=== PATIENT | male | born 1940 | race Caucasian/White ===

== ENCOUNTER 2017-03-24 09:35 | Emergency (ER) | payer MEDICARE ==
[~2017-03-24] VITALS: Ht 175.3 cm; Wt 90.0 kg
[~2017-03-24 09:35] MED LIST: ATOR40TA16 PO; CO Q10CA; GLIM4TAB PO; LACT10SO PO; LISI-515 PO; METF1000 PO; MULT1CHW70; OMEG1CHW2; PIOG15TA5 PO; PIOG30TA4 PO
[2017-03-24 09:41] VITALS: BP 186/86; PULSE 84; RESP 16; TEMP 98.5; O2SAT 100
[2017-03-24 10:02] VITALS: O2SAT 97
[2017-03-24] MEDS ORDERED: SODIUM CHLORIDE 0.9% FLUSH 10 ML FLUSH IVF PRN (10:15)
[2017-03-24 10:27] LABS: AUTOMATED NEUTROPHIL # 5.2 TH/MM3 (1.8-7.7); BASOPHIL # 0.1 TH/MM3 (0-0.2); BASOPHIL % 0.8 % (0.0-2.0); EOSINOPHIL # 0.4 TH/MM3 (0-0.4); EOSINOPHIL % 4.5 % (0.0-4.0); HEMATOCRIT 36.9 % (39.0-51.0); HEMO FLAGS DIFF FINAL; LYMPH % 19.5 % (9.0-44.0); LYMPHOCYTE # 1.6 TH/MM3 (1.0-4.8); MEAN CELL VOLUME 88.6 FL (80.0-100.0); MEAN CORPUSCULAR HGB CONC 33.9 % (32.0-36.0); MONO % 12.9 % (0.0-8.0); NEUT % 62.3 % (16.0-70.0); PLATELET COUNT 262 TH/MM3 (150-450); RED BLOOD COUNT 4.17 MIL/MM3 (4.50-5.90); RED CELL DISTRIBUTION WIDTH 14.5 % (11.6-17.2); WHITE BLOOD COUNT 8.3 TH/MM3 (4.0-11.0)
[2017-03-24] MEDS ORDERED: MORPHINE SULFATE 4 MG/ML INJ IV ONE (10:30)
[2017-03-24] MEDS ORDERED: MAGNESIUM CITRATE SOLN 300 ML BTL PO ONE (10:30)
[2017-03-24] MEDS ORDERED: ONDANSETRON HCL 4 MG/2 ML VIAL IVP ONE (10:30)
[2017-03-24 10:35] LABS: APTT (PATIENT) 27.5 SEC (24.3-30.1); PROTHROMBIN TIME - PATIENT 10.6 SEC (9.8-11.6)
[2017-03-24 10:45] LABS: ANION GAP 7 MEQ/L (5-15); BICARBONATE 28.6 MEQ/L (21.0-32.0); BLOOD UREA NITROGEN 21 MG/DL (7-18); CHLORIDE 101 MEQ/L (98-107); GLOMERULAR FILTRATION RATE 43 ML/MIN (>89); POTASSIUM 4.3 MEQ/L (3.5-5.1); SODIUM (NA) 137 MEQ/L (136-145)
--- NOTE | 2017-03-24 10:51 | RADRPT ---
EXAM DATE/TIME: 03/24/2017 10:07 [facility] COMPARISON: No previous studies available for comparison. INDICATIONS : Chest pain. MEDICAL HISTORY : None. SURGICAL HISTORY : None. ENCOUNTER: Initial ACUITY: 1 day PAIN SCORE: 7/10 LOCATION: Left upper chest FINDINGS: A single view of the chest demonstrates the lungs to be symmetrically aerated without evidence of mas s, infiltrate or effusion. The cardiomediastinal contours are unremarkable. Osseous structures are intact. CONCLUSION: 1. Minimal basal scarring. No effusion or pneumothorax. No consolidation. Tony Woody MD on March 24, 2017 at 10:48 Board Certified Radiologist. This report was verified electronically.
[2017-03-24 10:54] LABS: CREATINE KINASE 84 U/L (39-308)
--- NOTE | 2017-03-24 11:25 | RADRPT ---
EXAM DATE/TIME: 03/24/2017 10:36 [facility] COMPARISON: CT BRAIN W/O CONTRAST, September 29, 2015, 20:44. INDICATIONS : Upper chest and posterior neck pain. RADIATION DOSE: 33.91 CTDIvol (mGy) MEDICAL HISTORY : Hypertension. Diabetes mellitus type 2. SURGICAL HISTORY : None. ENCOUNTER: Initial ACUITY: 1 day PAIN SCALE: 6/10 LOCATION: Left posterior neck TECHNIQUE: Volumetric scanning of the cervical spine was performed. Multiplanar reconstructions in the sagittal, coronal and oblique axial planes were performed. Using automated exposure control and adjustment o f the mA and/or kV according to patient size, radiation dose was kept as low as reasonably achievable to obtain optimal diagnostic quality images. DICOM format image data is available electronically f or review and comparison. FINDINGS: Thin section axial imaging of the cervical spine was performed. Sagittal and coronal imaging demonstrate adequate alignment of the vertebral bodies. The examination does demonstrate degenerated discs throughout the mid and lower aspect of the cervical spine. There a re large anterior endplate osteophytes evident at C5-6 and C6-7. C1/2: No acute bony abnormality identified. C2/3: There is a degenerated disc with a broad-based disc bulge. There is advanced facet arthritis on the l eft. The thecal space and foramina appear adequate. C3/4: There is a severely degenerated disc with broad based disc bulge and osteophytic ridging. There is mo derate facet arthritis bilaterally. There is mild bony foraminal narrowing on the left. There is mode rate bony foraminal narrowing on the right. The residual thecal space appears narrowed but adequate. C4/5: There is severe facet arthritis on the left. There is a central disc protrusion. The thecal space pilar ears narrowed but adequate. The foraminal on the right is adequate. There is mild bony foraminal narr owing on the left. C5/6: There is a degenerated disc and a broad-based disc bulge. This effaces the ventral thecal sac. There is moderate facet arthritis bilaterally. The residual thecal space and foramina appear adequate. C6/7: There is a degenerated disc with osteophytic ridging. There is right paracentral disc bulge and osteo phytic spur. The thecal space appears adequate. The foramina appear adequate. C7/T1: There are degenerative changes in the facets bilaterally. No significant neural foraminal stenosis or spinal stenosis identified. CONCLUSION: 1. Degenerative changes throughout the cervical spine as above. No acute fracture. Vishnu Holguin MD on March 24, 2017 at 11:18 Board Certified Radiologist. This report was verified electronically.
--- NOTE | 2017-03-24 11:57 | PD ---
HPI Chief Complaint: Chest Pain Time Seen by Provider: 09:44 Travel History International Travel<30 days: No Contact w/Intl Traveler<30days: No Traveled to known affect area: No History of Present Illness HPI Mr. Malave is a 76-year-old male history coronary artery disease, diabetes mellitus, renal insufficiency, who presents today with complaints of constipation. Patient also reports pain from his neck down across his chest. He reports that sharp and stabbing. He says it hurts when he moves his neck side to side. He denies any previous injury to his neck. He did state that he was doing heavy lifting yesterday carrying a toilet. PFSH Past Medical History Anxiety: Yes Cancer: No Cardiovascular Problems: No Diabetes: Yes Diminished Hearing: No Endocrine: Yes Gastrointestinal Disorders: Yes (GERD) Genitourinary: No Hepatitis: No Hiatal Hernia: No Hypertension: Yes Immune Disorder: No Implanted Vascular Access Dvce: Yes Musculoskeletal: Yes (ARTHRITIS ) Neurologic: No Psychiatric: No Reproductive: No Respiratory: Yes ( SLEEP APNEA/ CPAP) Thyroid Disease: No Past Surgical History AICD: No Body Medical Devices: SCREW RIGHT LARGE TOE Joint Replacement: Yes (NICKI. KNEES) Pacemaker: No Other Surgery: Yes Social History Alcohol Use: No Tobacco Use: No Substance Use: No Allergies-Medications (Allergen,Severity, Reaction): Coded Allergies: No Known Allergies (Unverified , 03/21/17) Reported Meds & Prescriptions Reported Meds & Active Scripts Active Flexeril (Cyclobenzaprine HCl) 5 Mg Tab 5 Mg PO TID Lactulose Liq (Lactulose) 10 Gm/15 Ml Soln 15 Ml PO BID PRN dISCONTINUE IF HAVING DIARRHEA Pioglitazone (Pioglitazone HCl) 15 Mg Tab 15 Mg PO DAILY Atorvastatin (Atorvastatin Calcium) 40 Mg Tab 40 Mg PO HS Lisinopril 20 Mg Tab 20 Mg PO DAILY Glimepiride 4 Mg Tab 4 Mg PO DAILY Take with breakfast or first main meal Metformin (Metformin HCl) 1,000 Mg Tab 1,000 Mg PO BIDPC With meals Pioglitazone (Pioglitazone HCl) 30 Mg Tab 30 Mg PO DAILY Reported Multivitamin Adult (Multiple Vitamins W/ Minerals) 1 Chw Chw [place] Dha ([place] 3 Fatty Acids-[place] 6 FA) Unknown Strength Chw Unknown Dose Co Q 10 (Coenzyme Q10 (Ubidecarenone)) Unknown Strength Cap Unknown Dose Review of Systems Except as stated in HPI: all other systems reviewed are Neg General / Constitutional: No: Fever, Chills HENT: Positive: Neck Pain, No: Headaches, Vertigo Cardiovascular: Positive: Chest Pain or Discomfort (radiate from the neck), No : Irregular Rhythm Respiratory: No: Cough, Shortness of Breath Gastrointestinal: Positive: Abdominal Pain, Constipation, No: Nausea, Vomiting Genitourinary: No: Frequency, Dysuria Musculoskeletal: Positive: Pain (paraspinous in the neck), No: Weakness Neurologic: No: Weakness, Dizziness, Headache, Change in Mentation Physical Exam Narrative GENERAL: Well developed well-nourished gentleman in no acute respiratory distress. SKIN: Focused skin assessment warm/dry. HEAD: Atraumatic. Normocephalic. EYES: No scleral icterus. No injection or drainage. ENT: No nasal bleeding or discharge. Mucous membranes pink and moist. NECK: Trachea midline. Patient has tenderness in his paraspinous distribution bilaterally. No posterior spinous process tenderness. CARDIOVASCULAR: Regular rate and rhythm. No murmur appreciated. RESPIRATORY: No accessory muscle use. Clear to auscultation. Breath sounds equal bilaterally. GASTROINTESTINAL: Abdomen soft, distended. No rebound or guarding. MUSCULOSKELETAL: No obvious deformities. No clubbing. No cyanosis. No edema. NEUROLOGICAL: Awake and alert. No obvious cranial nerve deficits. Motor grossly within normal limits. Normal speech. PSYCHIATRIC: Appropriate mood and affect; insight and judgment normal. Data Data Last Documented VS Vital Signs Date Time Temp Pulse Resp B/P Pulse Ox O2 Delivery O2 Flow Rate FiO2 03/24/17 14:20 73 16 133/ 99 Room Air 03/24/17 09:41 98.5 Orders Electrocardiogram (03/24/17 10:01) Basic Metabolic Panel (Bmp) (03/24/17 10:01) Ckmb (Isoenzyme) Profile (03/24/17 10:01) Complete Blood Count With Diff (03/24/17 10:01) Magnesium (Mg) (03/24/17 10:01) Prothrombin Time / Inr (Pt) (03/24/17 10:01) Act Partial Throm Time (Ptt) (03/24/17 10:01) Troponin I (03/24/17 10:01) Chest, Single Ap (03/24/17 10:01) Ecg Monitoring (03/24/17 10:01) Bilateral Bp Monitoring (03/24/17 10:01) Iv Access Insert/Monitor (03/24/17 10:01) Oximetry (03/24/17 10:01) Oxygen Administration (03/24/17 10:01) Sodium Chloride 0.9% Flush (Ns Flush) (03/24/17 10:15) Magnesium Citrate Liq (Citroma Liq) (03/24/17 10:30) Ct Cerv Spine W/O Contrast (03/24/17 10:16) Morphine Inj (Morphine Inj) (03/24/17 10:30) Ondansetron Inj (Zofran Inj) (03/24/17 10:30) Labs Laboratory Tests Test 03/24/17 10:00 White Blood Count 8.3 TH/MM3 Red Blood Count 4.17 MIL/MM3 Hemoglobin 12.5 GM/DL Hematocrit 36.9 % Mean Corpuscular Volume 88.6 FL Mean Corpuscular Hemoglobin 30.0 PG Mean Corpuscular Hemoglobin 33.9 % Concent Red Cell Distribution Width 14.5 % Platelet Count 262 TH/MM3 Mean Platelet Volume 8.6 FL Neutrophils (%) (Auto) 62.3 % Lymphocytes (%) (Auto) 19.5 % Monocytes (%) (Auto) 12.9 % Eosinophils (%) (Auto) 4.5 % Basophils (%) (Auto) 0.8 % Neutrophils # (Auto) 5.2 TH/MM3 Lymphocytes # (Auto) 1.6 TH/MM3 Monocytes # (Auto) 1.1 TH/MM3 Eosinophils # (Auto) 0.4 TH/MM3 Basophils # (Auto) 0.1 TH/MM3 CBC Comment DIFF FINAL Differential Comment Prothrombin Time 10.6 SEC Prothromb Time International 1.0 RATIO Ratio Activated Partial 27.5 SEC Thromboplast Time Sodium Level 137 MEQ/L Potassium Level 4.3 MEQ/L Chloride Level 101 MEQ/L Carbon Dioxide Level 28.6 MEQ/L Anion Gap 7 MEQ/L Blood Urea Nitrogen 21 MG/DL Creatinine 1.58 MG/DL Estimat Glomerular Filtration 43 ML/MIN Rate Random Glucose 241 MG/DL Calcium Level 9.4 MG/DL Magnesium Level 2.0 MG/DL Total Creatine Kinase 84 U/L Troponin I LESS THAN 0.02 NG/ML MDM Medical Decision Making Medical Screen Exam Complete: Yes Emergency Medical Condition: Yes Differential Diagnosis ACS versus obstipation versus musculoskeletal pain. Narrative Course 76-year-old male who presents with atypical chest pain. Patient states he has pain that radiates from his neck down into his chest and shoulders. He denies any numbness or tingling of his extremities per patient also reports severe constipation with abdominal bloating. The patient's EKG and cardiac enzymes are within normal limits. The patient does have significant constipation. He was given a total of 3 soapsuds enemas. We had excellent results with a large amount of stool return. Patient was also prior to the soapsuds enema given mag citrate one bottle by mouth. He is pain and discomfort free. He will be put on Flexeril 5 mg 3 times a day for 5 days. He is also instructed to use Motrin. He is instructed to take a stool softener and a yogurt daily with plenty of liquid. A CT scan of the neck showed degenerative changes with no evidence of fracture or dislocation. Diagnosis Primary Impression: Atypical chest pain Additional Impressions: severe constipation Cervical strain Patient Instructions: Narcotic given in the ED Additional Instructions: Ibuprofen 2-3 times daily 2-3 days. Warm heat to the neck. Med/Other Pt SpecificInfo: Prescription(s) given Scripts Cyclobenzaprine (Flexeril)5 Mg Tab5 Mg PO TID #15 TAB Ref 0 Prov:Avila Castillo MD 03/24/17 Disposition: LEFT WITHOUT BEING SEEN Avila Castillo MD Mar 24, 2017 11:57
[2017-03-24 14:20] VITALS: BP_SYST 133; PULSE 73; RESP 16; O2SAT 99
[2017-03-24] MEDS ORDERED: CYCL5TAB PO (15:14)
[2017-03-24] MEDS ORDERED: COEN100T PO (15:41)
[2017-03-24] MEDS ORDERED: FISH100020 PO (15:41)
[2017-03-24] MEDS ORDERED: MULT-142 PO (15:41)
[2017-03-24] MEDS ORDERED: ACTO30TA10 PO (15:44)
[2017-03-24 15:49] VITALS: BP 145/72
--- NOTE | 2017-03-24 16:46 | EKG ---
Date Performed: 03/24/2017 Time Performed: 09:44:49 PTAGE: 76 years EKG: Sinus rhythm BORDERLINE LEFT AXIS DEVIATION BORDERLINE ECG PREVIOUS TRACING 09/30/15 209.17 Compared to prior tracing no significant change DOCTOR: Giselle Roberts Interpretating Date/Time 03/24/2017 16:44:45
== END 2017-03-24 15:55 | disposition home or self-care (01) ==
LOC: NEPC 09:35
DX: R07.89 Other chest pain (principal); K59.00 Constipation, unspecified; S16.1XXA Strain of muscle, fascia and tendon at neck level, initial encounter; I10 Essential (primary) hypertension; I25.10 Atherosclerotic heart disease of native coronary artery without angina pectoris; E11.9 Type 2 diabetes mellitus without complications; X50.9XXA Other and unspecified overexertion or strenuous movements or postures, initial encounter; Z79.84 Long term (current) use of oral hypoglycemic drugs; Z79.899 Other long term (current) drug therapy
CPT/HCPCS: 71010; 72125; 80048; 82550; 83735; 84484; 85025; 85610; 85730; 93005; 96374; 96375; 99285; J2270; J2405

== ENCOUNTER 2017-04-21 09:26 | Inpatient (IN) | payer MEDICARE ==
[~2017-04-21] VITALS: Ht 175.3 cm; Wt 86.2 kg
[~2017-04-21 09:26] MED LIST changes: +ACTO30TA10 PO; -CO Q10CA; +COEN100T PO; +FISH100020 PO; +HYDR-3288 PO; -LACT10SO PO; +MULT-142 PO; -MULT1CHW70; -OMEG1CHW2; -PIOG15TA5 PO; -PIOG30TA4 PO
[2017-04-21 09:37] VITALS: BP 189/88; PULSE 75; RESP 16; TEMP 98.3; O2SAT 95
[2017-04-21] MEDS ORDERED: DEXAMETHASONE SOD PHOS 20 MG/5 ML VIAL IV PUSH ONE (10:00)
[2017-04-21] MEDS ORDERED: LORazepam 2 MG/ML VIAL IV PUSH ONE (10:00)
[2017-04-21] MEDS ORDERED: ONDANSETRON HCL 4 MG/2 ML VIAL ONE (10:09)
--- NOTE | 2017-04-21 10:11 | PD ---
HPI . Low back pain Chief Complaint: Pain: Acute or Chronic Time Seen by Provider: 09:50 Travel History International Travel<30 days: No Contact w/Intl Traveler<30days: No Traveled to known affect area: No History of Present Illness HPI Patient presents by [facility] with the chief complaint of low back pain. He states that his back pain was so bad this morning that he could not walk which prompted the call to 911. EMS treated him in route with morphine. This patient has had a 2-3 month history of progressively worsening neck and low back pain. The pain is described as sharp. The pain is exacerbated by movement. Pain is rated 9/10. The patient was seen by his primary care provider on 04/19. She ordered an MRI of his C and L-spines. Those were done yesterday but have not yet been read. The patient has been referred to Dr. Martinez for treatment. The patient does not yet have an appointment with Dr. Martinez as the referral was just made yesterday. PFSH Past Medical History Anxiety: Yes Cancer: No Cardiovascular Problems: No Diabetes: Yes Patient Takes Glucophage: Yes Diminished Hearing: No Endocrine: Yes Gastrointestinal Disorders: Yes (GERD) Genitourinary: No Hepatitis: No Hiatal Hernia: No Hypertension: Yes Immune Disorder: No Implanted Vascular Access Dvce: Yes Musculoskeletal: Yes (ARTHRITIS ) Neurologic: No Psychiatric: No Reproductive: No Respiratory: Yes ( SLEEP APNEA/ CPAP) Thyroid Disease: No Past Surgical History AICD: No Body Medical Devices: SCREW RIGHT LARGE TOE Joint Replacement: Yes (NICKI. KNEES) Pacemaker: No Other Surgery: Yes Social History Alcohol Use: No Tobacco Use: No Substance Use: No Allergies-Medications (Allergen,Severity, Reaction): Coded Allergies: No Known Allergies (Unverified , 04/19/17) Reported Meds & Prescriptions Reported Meds & Active Scripts Active Atorvastatin (Atorvastatin Calcium) 40 Mg Tab 40 Mg PO HS Actos (Pioglitazone HCl) 30 Mg Tab 30 Mg PO DAILY Lisinopril 20 Mg Tab 20 Mg PO DAILY Glimepiride 4 Mg Tab 4 Mg PO DAILY Take with breakfast or first main meal Metformin (Metformin HCl) 1,000 Mg Tab 1,000 Mg PO BIDPC With meals [place] (Hydrocodone-Acetaminophen) 7.5-325 mg Tab 1 Tab PO Q6H PRN Reported Coenzyme Q10 (Ubidecarenone) 100 Mg Tab 100 Mg PO DAILY Review of Systems Except as stated in HPI: all other systems reviewed are Neg General / Constitutional: No: Fever, Chills Musculoskeletal: Positive: Pain (neck and low back) Neurologic: No: Focal Abnormalities, Paresthesia, Incontinence Physical Exam Narrative GENERAL: Patient is awake and alert. SKIN: Warm and dry. HEAD: Atraumatic. Normocephalic. EYES: Pupils equal and round. Extraocular movements are intact. ENT: No nasal bleeding or discharge. Mucous membranes pink and moist. NECK: Trachea midline. CARDIOVASCULAR: Regular rate and rhythm. RESPIRATORY: No accessory muscle use. GASTROINTESTINAL: Abdomen soft, non-tender, nondistended. MUSCULOSKELETAL: No obvious deformities. No edema. Tender in the low back. Straight leg raise on the right reproduces low back pain. NEUROLOGICAL: Awake and alert. No obvious cranial nerve deficits. Motor grossly within normal limits. Normal speech. PSYCHIATRIC: Angry affect; insight and judgment unrealistic. He expects that his neurosurgical consultation should have already happened. Data Data Last Documented VS Vital Signs Date Time Temp Pulse Resp B/P Pulse Ox O2 Delivery O2 Flow Rate FiO2 04/21/17 09:37 98.3 75 16 189/88 95 Orders Dexamethasone Inj (Decadron Inj) (04/21/17 10:00) Lorazepam Inj (Ativan Inj) (04/21/17 10:00) Ondansetron Inj (Zofran Inj) (04/21/17 10:09) Ondansetron Inj (Zofran Inj) (04/21/17 10:15) Place In Observation (04/21/17 ) Code Status (04/21/17 10:46) Vital Signs (Adult) BENEDICT.Q4H (04/21/17 10:46) Activity Oob Ad Noris (04/21/17 10:46) Diet Regular Basic (04/21/17 Lunch) Resp Oxygen Maxx C Titrat 1-4 L (04/21/17 ) Sodium Chloride 0.9% Flush (Ns Flush) (04/21/17 11:00) Sodium Chloride 0.9% Flush (Ns Flush) (04/21/17 21:00) Basic Metabolic Panel (Bmp) (04/21/17 10:46) MDM Medical Decision Making Medical Screen Exam Complete: Yes Emergency Medical Condition: Yes Medical Record Reviewed: Yes (this patient was seen by his primary care provider 2 days ago. He had an MRI of the C and L-spines done yesterday which have not yet been read. He was referred to Dr. Martinez yesterday. Is also been referred to pain management. He was given a prescription for [place] 7.5 mg total #30 on 04/19.) Differential Diagnosis Differential diagnosis includes but is not limited to degenerative disc disease , spinal stenosis, lumbar radiculopathy, muscular pain., kidney colic, pyelonephritis, AAA. Narrative Course This patient presents with low back pain. He has been treated in route by EMS with morphine. I have added Decadron and Ativan. No radiographic imaging is necessary in the emergency department as this was already done as an outpatient yesterday. We have been able to get this patient's MRI results. The MRIs were actually done on 04/19. L-spine shows an extruded disc on the right impinging on the L4 nerve root. MRI of the cervical spine shows multiple small central protrusions and bilateral foraminal narrowing at C3/C4. Family practice has been consult. This patient is a patient of family practice. He will be admitted to observation for pain control. Diagnosis Primary Impression: Low back pain Qualified Code: M54.5 - Acute right-sided low back pain without sciatica Admitting Information Admitting Physician Requests: Observation Condition: Stable Mary Jo Lugo MD Apr 21, 2017 10:11
[2017-04-21] MEDS ORDERED: ONDANSETRON HCL 4 MG/2 ML VIAL IV PUSH ONE (10:15)
[2017-04-21] MEDS ORDERED: SODIUM CHLORIDE 0.9% FLUSH 10 ML FLUSH IV FLUSH PRN (11:00)
[2017-04-21 11:27] VITALS: BP 125/64; PULSE 89; RESP 18; O2SAT 99
--- NOTE | 2017-04-21 12:11 | HHI.HP ---
[facility] Service Family Medicine Primary Care Physician Tanisha Hernandez MD Admission Diagnosis low back pain Diagnoses: International Travel<30 Days: No Contact w/Intl Traveler<30days: No Known Affected Area: No History of Present Illness Patient is a 76-year-old male with a history of diabetes who presented to the ED today for 3 months of progressively worsening, intractable right-sided lower back pain that limits his ability to ambulate. Patient presents with his who provides much of the history. Patient has tried [place], but this does nothing for his pain. His pain is exacerbated by movement. He describes the pain as sharp. He currently rates his pain severity as an 9 out of 10. He denies any urinary or bowel incontinence, saddle anesthesia. Patient presented to his primary care provider, Dr. Hernandez, about 3 months ago with pain in his right side. He then went to 2 different emergency department with complaints of constipation. When he went home, he still right sided pain that radiated down his leg. 2 days ago, the patient presented again to Dr. Aleksandra Pruitt with complaints of pain. MRI was ordered. Dr. Chel Pruitt called and told pt's that pain medications wouldn't help because the patient needs neurosurgery. Patient was referred to Dr. Martinez as an outpatient, but has not yet had the opportunity to see him. Last night, the patient was screaming in pain and couldn't walk. He reports that the pain was down his right leg and up his neck. He tried to walk today, but couldn't walk secondary to pain. Patient was brought in by EMS who gave him morphine on the way. His last bowel movement was 2 days ago on Monday. (Noel Tang MD R1) Review of Systems Constitutional: DENIES: Diaphoretic episodes, Fever, Weight loss, Chills, Night Sweats Endocrine: DENIES: Polydipsia, Polyuria Eyes: DENIES: Blurred vision, Diplopia, Vision loss, Double Vision Ears, nose, mouth, throat: COMPLAINS OF: Throat pain (pain with swallowing), Running Nose (little ), DENIES: Hearing loss, Sinus Pain Respiratory: DENIES: Cough, Shortness of breath Cardiovascular: COMPLAINS OF: Chest pain (related to neck and back problems), DENIES: Dyspnea on Exertion, Lower Extremity Edema Gastrointestinal: COMPLAINS OF: Constipation (last BM Wed), Nausea, Vomiting ( few minutes ago), DENIES: Abdominal pain Genitourinary: DENIES: Hematuria, Dysuria Musculoskeletal: COMPLAINS OF: Back pain, Neck pain Integumentary: DENIES: Nail changes, Rash Neurologic: DENIES: Headache Psychiatric: COMPLAINS OF: Depression (11/03), DENIES: Suicidal Ideation (Noel Tang MD R1) Past Family Social History Past Medical History DM2 Hyperlipidemia History of anxiety, now controlled Sleep apnea-being followed by specialists. Requires CPAP CKD stage 3 Allergies: Seasonal allergies, no known drug allergies Health maintenance: Incidental lung nodule seen on CT in 01/2017: Need repeat imaging on the following intervals 3, 9, 24 months. Next due date will be in 05/2017 Colonoscopy: around 2011 Influenza vaccine: [id number] season Pneumovax: Received from [facility] 2014 Diabetic foot exam: 02/10/2016 Diabetic microalbumin: to be ordered at next visit Diabetic Eye exam: has routine eye care by [facility], will clarify last examination date (Referral was provided on 11/2015) Past Surgical History R knee arthroplasty 2012 Left knee arthroplasty 2013 Right foot bunion-December 2012, revision in 2013 Reported Medications Reported Meds & Active Scripts Active Actos (Pioglitazone HCl) 30 Mg Tab 30 Mg PO DAILY Lisinopril 20 Mg Tab 20 Mg PO DAILY Glimepiride 4 Mg Tab 4 Mg PO DAILY Take with breakfast or first main meal Metformin (Metformin HCl) 1,000 Mg Tab 1,000 Mg PO BIDPC With meals [place] (Hydrocodone-Acetaminophen) 7.5-325 mg Tab 1 Tab PO Q6H PRN Reported Coenzyme Q10 (Ubidecarenone) 100 Mg Tab 100 Mg PO DAILY (Noel Tagn MD R1) Allergies: Coded Allergies: No Known Allergies (Unverified , 04/19/17) Active Ordered Medications Current Medications Medications (Trade) Dose Ordered Sig/Valente Route Start Time Stop Time Status Last Admin (NS Flush) 2 ml UNSCH PRN IV FLUSH 04/21/17 11:00 (NS Flush) 2 ml BID IV FLUSH 04/21/17 21:00 (Prinivil) 20 mg DAILY PO 04/22/17 09:00 (Morphine Inj) 2 mg Q3H PRN IV PUSH 04/21/17 12:45 (Morphine Inj) 5 mg Q3H PRN IV PUSH 04/21/17 12:45 (Morphine Inj) 5 mg Q3H PRN IV PUSH 04/21/17 12:45 04/21/17 14:34 (Ofirmev Inj) 1,000 mg Q6H IV 04/21/17 12:45 04/22/17 06:46 04/21/17 13:37 (Narcan Inj) 0.4 mg UNSCH PRN IV 04/21/17 12:45 (D50w (Vial) Inj) 50 ml UNSCH PRN IV 04/21/17 14:45 (Glucagon Inj) 1 mg UNSCH PRN OTHER 04/21/17 14:45 (Apresoline) 10 mg Q8H PRN PO 04/21/17 14:45 (D50w (Vial) Inj) 50 ml UNSCH PRN IV 04/21/17 16:30 UNV (Glucagon Inj) 1 mg UNSCH PRN OTHER 04/21/17 16:30 UNV Family History Father at 65yo due to stroke. Hx of Parkinson's syndrome Mother due to renal cancer at 49yo Brother 65yo due to stroke/IA Sister with breast cancer and bone cancer-age 74 Son living with emphysema Daughter living- limited contact. 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 Quit >40 years ago EtOH: denies Illicit drugs: denies (Noel Tang MD R1) Physical Exam Vital Signs Vital Signs Date Time Temp Pulse Resp B/P Pulse Ox O2 Delivery O2 Flow Rate FiO2 04/21/17 11:27 89 18 125/64 99 04/21/17 09:37 98.3 75 16 189/88 95 04/21/17 09:37 78 Physical Exam GENERAL: This is a well-nourished, well-developed patient, sitting up in bed, trying not to move but in no acute distress. SKIN: No rashes, ecchymoses or lesions. Cool and dry. HEAD: Atraumatic. Normocephalic. EYES: Pupils equal round and reactive. Extraocular motions intact. No scleral icterus. No injection or drainage. ENT: Nose without bleeding, purulent drainage or septal hematoma. Moist mucous membranes. Top and bottom dentures present. Throat without erythema, tonsillar hypertrophy or exudate. Uvula midline. Airway patent. NECK: Trachea midline. No JVD or lymphadenopathy. Supple, nontender, no meningeal signs. CARDIOVASCULAR: Regular rate and rhythm without murmurs, gallops, or rubs. RESPIRATORY: Clear to auscultation. Breath sounds equal bilaterally. No wheezes , rales, or rhonchi. GASTROINTESTINAL: Abdomen soft, non-tender, nondistended. No hepato-splenomegaly , or palpable masses. No guarding. MUSCULOSKELETAL: Extremities without clubbing, cyanosis, or edema. No joint tenderness, effusion, or edema noted. No calf tenderness. Back exam: No midline bony tenderness to palpation. No paraspinal muscle tenderness to palpation, including piriformis palpation. Negative straight leg raise bilaterally. Neck exam: Patient unable to move his neck in any direction without pain. NEUROLOGICAL: Awake and alert. Cranial nerves II through XII grossly intact. Motor and sensory grossly within normal limits. 4/5 muscle strength in hip flexors. Normal speech. (Noel Tang MD R1) Imaging MRI of lumbar spine, without contrast, from 04/20/17 showed: Extruded disc on the right impinging on the traversing right L4 nerve root. Course In emergency department, patient had Ativan 2 mg IV push 1, dexamethasone 10 mg IV push 1, Zofran. (Noel Tang MD R1) Assessment and Plan Assessment and Plan Patient is a 76-year-old male with a history of diabetes who presented to the ED today for 3 months of progressively worsening, intractable right-sided lower back pain that limits his ability to ambulate. Extruded disc on the right impinging on the traversing right L4 nerve root on MRI. Will place patient in observation for pain control and neurosurgery consult. Code Status Full code (Noel Tang MD R1) Attending Attestation THIS CASE WAS DISCUSSED WITH THE RESIDENT PHYSICIANS. I HAVE REVIEWED THE RECORD AND AGREE WITH THE ABOVE NOTE AND PLAN OF CARE WAS DISCUSSED. I HAVE AUTHORIZED THE ORDER FOR ADMISSION TO AN IN-PATIENT STATUS. (Killian Saucedo MD) Problem List: (1) Low back pain Status: Acute Plan: Observation Neurosurgery consult appreciated Pain control as below: * Acetaminophen 1 g IV every 6 hours scheduled * Morphine 2 mg IV push every 3 hours when necessary for pain 1-5 * morphine 5 mg IV push every 3 hours when necessary for pain 6-10 * morphine 5 mg IV push every 3 hours when necessary for breakthrough pain Anticonstipation meds indications as below: * Marleni-Colace one tab by mouth twice a day * Other anticonstipation meds depending on severity of constipation (2) CKD (chronic kidney disease) Status: Acute Plan: Patient with a history of CKD stage 3. Creatinine seems to be at baseline. Continue monitor (3) Hypertension Status: Chronic Plan: Hypertension controlled on medication. Continue home medication lisinopril 20 mg by mouth daily (4) Diabetes Status: Chronic Plan: Patient on multiple different oral medications to control his diabetes. Hold home medications Low dose sliding scale insulin (5) DVT prophylaxis Status: Acute Plan: DVT prophylaxis as below: Heparin 5000 units subcutaneous every 8 hours (6) FEN Status: Acute Plan: Fluids: By mouth Electrolytes: Monitor and replete Nutrition: Diabetic diet (Noel Tang MD R1) Problem Qualifiers (1) Low back pain: Qualified Code: M54.5 - Acute right-sided low back pain without sciatica Noel Tang MD R1 Apr 21, 2017 12:11 Killian Saucedo MD Apr 22, 2017 11:16
[2017-04-21] MEDS ORDERED: NALOXONE HCL 0.4 MG/ML AMP IV PRN (12:45)
[2017-04-21] MEDS ORDERED: MORPHINE SULFATE 4 MG/ML INJ IV PUSH PRN (12:45)
[2017-04-21 13:26] LABS: BICARBONATE 27.8 MEQ/L (21.0-32.0); POTASSIUM 4.2 MEQ/L (3.5-5.1)
[2017-04-21] MEDS: ACETAMINOPHEN 1000 MG/100 ML VIAL IV SCH ×2 (13:37→18:32)
[2017-04-21 13:53] VITALS: BP 142/68; PULSE 77; RESP 18; TEMP 96; O2SAT 94
[2017-04-21] MEDS: MORPHINE SULFATE 8 MG/ML INJ IV PUSH PRN ×2 (14:34→21:52)
[2017-04-21] MEDS ORDERED: hydrALAZINE HCL 10 MG TAB PO PRN (14:45)
[2017-04-21] MEDS ORDERED: GLUCAGON 1 MG/ML VIAL OTHER PRN ×2 (14:45→16:30)
[2017-04-21] MEDS ORDERED: DEXTROSE 50% IN WATER 50 ML VIAL(D50) IV PRN ×2 (14:45→16:30)
--- NOTE | 2017-04-21 15:49 | PD.CONS ---
(Chase Moncada) [facility] Service Neurosurgery Consult Requested By Dr Tang Reason for Consult Back pain, L4 disc extrusion Primary Care Physician Tanisha Hernandez MD History of Present Illness The patient presented to the emergency department this morning due to an inability to walk and severe pain to the neck and lower back. During the night the patient woke up screaming due to the pain. When he attempted to get out of bed this morning he was not able to stand up on his legs. Therefore his called 911 and he was transported to [place]. He does report a history of low back pain that was mild for years. Approximately two or three months ago the patient had right lateral abdominal/flank pain and saw his primary who though it was muscular. After that he traveled to [place] and presented to an emergency department there due to right-sided pain and constipation. After several hours there without any treatment he left. After returning to the [facility] he presented to the emergency department at [facility] and had a CT scan done. While there he had four enemas for the constipation. Over the past two or three weeks the pain has gradually worsened. On the patient saw his primary due to the pain and she ordered MRIs of the cervical and lumbar spine which were done that day. After completion the primary called the and told her that Pain Management would be of no benefit and was referring him to Neurosurgery due to an extrusion of a disc to the lumbar spine. He states that he has pain into both hips and shoulders, across the chest and the abdomen with the worse being to the right lateral abdomen/flank. The pain is constant and varies in intensity and is aggravated by movement. He reported some numbness to the distal fingertips of the left hand. He denies any numbness or tingling into the upper or lower extremities otherwise. He denies any incontinence of urine or stool. He has not had any relief with either ibuprofen or tramadol. There is no known precipitating event. (Chase Moncada) Review of Systems Constitutional: Patient denies any fever or chills. HEENT: Patient feels like he has some pressure to the throat. He denies any visual or hearing difficulty. Respiratory: Patient denies any shortness of breath or productive cough. Cardiovascular: Patient has pain across the chest from his back. He denies any palpitations or irregular heartbeat. Gastrointestinal: Patient has pain across the abdomen, especially the right side. He has also been nauseated and vomited after having been given pain medication earlier. He reports having had constipation. He denies any incontinence of stool. Genitourinary: Patient denies any incontinence of urine. Musculoskeletal: Patient has pain to the neck, back, both shoulders and hips. Integumentary: Patient denies any rashes, ulcerations or other lesions. Neurologic: Patient states that he was not able to get up and walk this morning. He reports that he has had some numbness to the fingertips of the left hand. He also reports some headache coming up from his neck. He denies dizziness , tingling or other numbness. Haematologic/Lymphatic: Patient denies any easy bruising or bleeding. He also denies any swollen glands. Psychiatric: Patient has some anxiety. (Chase Moncada) Past Family Social History Allergies: Coded Allergies: No Known Allergies (Unverified , 04/19/17) Past Medical History Diabetes mellitus, type 2 Hyperlipidemia History of anxiety, now controlled Sleep apnea requiring CPAP Chronic kidney disease stage 3 Past Surgical History Right knee total replacement 2012 Left knee arthroplasty 2013 Right foot hammertoe & bunion December 2012, revision 2014 Right wrist surgery Family History Father at 65 y/o due to stroke, history of Parkinson's syndrome Mother at 49 y/o due to renal cancer Brother at 65y/o due to stroke/VT Sister with breast cancer and bone cancer, currently 74 y/o Social History 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 SKIN: Warm, dry & intact, no evident discolouration, rashes, ulceration or other lesions. HEENT: Normocephalic, atraumatic. NECK: Midline cervical spine NTTP, neck supple, no JVD, no adenopathy, trachea midline. CARDIOVASCULAR: S1S2 w/RRR w/o M/G/R, radial & pedal pulses 2+ bilaterally, cap refill < 2 sec, no pedal edema. RESPIRATORY: CTAB w/o W/R/R, equal excursion, nonlaboured, on RA. GASTROINTESTINAL: Abdomen soft, TTP to right lateral & flank, positive bowel sounds to all quadrants, no palpable masses or organomegaly. GENITOURINARY: Normal male genitial. MUSCULOSKELETAL: POTTS. Upper thoracic spine mildly TTP, mid & lower thoracic spine NTTP, lumbar spine TTP, no paraspinal or buttock tenderness. Bilateral hips TTP R>L, bilateral shoulders mildly TTP, otherwise no upper or lower extremity tenderness. Pain with straight leg left at 60 degrees to right & left. Tremor noted to right hand/forearm which said she noted today. NEUROLOGICAL: AAOx3 although some confusion as to when things occurred Speech clear, appropriate but delayed CN II-XII appear grossly intact Sensation intact to light touch to all extremities, no numbness to the distal fingertips to either hand Motor strength 4+ to 5/5 to all major flexion & extension muscle groups to all extremities and to hand intrinsics/extrinsics, any evident weakness seems more r /t pain than true weakness No ankle clonus No Mayes's Babinski appears neutral but difficult to assess as patient moves foot when tested PSYCHIATRIC: Patient with slightly flat affect, readily interacts. Laboratory Laboratory Tests Test 04/21/17 12:40 Sodium Level 138 Potassium Level 4.2 Chloride Level 101 Carbon Dioxide Level 27.8 Anion Gap 9 Blood Urea Nitrogen 23 Creatinine 1.54 Estimat Glomerular Filtration 44 Rate Random Glucose 164 Calcium Level 9.4 (Chase Moncada) Result Diagram: 04/21/17 1240 Assessment and Plan Assessment and Plan Impression: Right L3-4 disc extrusion with impingement of the traversing right L4 nerve root Plan: Anticipate surgery on Monday (Chase Moncada) Attending Statement I have personally seen and examined the patient on 04/21/17. Pertinent documentation and study results have been reviewed by the undersigned. I have personally developed the treatment plan and performed medical decision making. Agree with findings, exam, and treatment plan as noted above. I had a long discussion with the patient today on 04/21/17 regarding the initial imaging findings. His examination reveals no focal deficits in the upper and lower extremities, no evidence of myelopathic findings or symptoms. His symptoms are somewhat unusual, radiating from the cervical thoracic down to the lumbosacral region and then looping around to the right flank and then back towards lumbar region. He consistently draws out this pattern when repetitively asked regarding his symptoms during the interview and exam. He does not indicate any lower extremity pain weakness or numbness. In order to fully rule out early thoracic myelopathy or other thoracic lesion, a MRI of the thoracic spine is recommended. The findings will be reviewed with him. (Maury Martinez MD) Chase Moncada Apr 21, 2017 15:49 Maury Martinez MD Apr 22, 2017 22:58
[2017-04-21] MEDS ORDERED: INSULIN ASPART SUPPLEMENTAL SCALE SQ SCH (16:00)
[2017-04-21 16:44] VITALS: BP 148/67; PULSE 86; RESP 20; TEMP 96.3; O2SAT 94
[2017-04-21] MEDS: INSULIN ASPART SUPPLEMENTAL SCALE SQ SCH ×2 (18:30→20:36)
[2017-04-21 19:31] VITALS: BP 170/87; PULSE 109; RESP 18; TEMP 98.2; O2SAT 94
[2017-04-21] MEDS ORDERED: SENNOSIDES 8.6 MG TAB PO PRN (20:30)
[2017-04-21] MEDS ORDERED: MAGNESIUM HYDROXIDE SUSP 30 ML CUP PO PRN (20:30)
[2017-04-21] MEDS ORDERED: LACTULOSE SYRUP 20 GM/30 ML CUP PO PRN (20:30)
[2017-04-21] MEDS ORDERED: BISACODYL 10 MG SUPP RECTAL PRN (20:30)
[2017-04-21] MEDS: SODIUM CHLORIDE 0.9% FLUSH 10 ML FLUSH IV FLUSH SCH (20:31)
[2017-04-21] MEDS: DOCUSATE SODIUM 50 MG/SENNA 8.6 MG TAB PO SCH (21:07)
[2017-04-21 21:51] LABS: ALT (GPT) 28 U/L (12-78); AST (GOT) 21 U/L (15-37)
[2017-04-21 21:53] LABS: ALKALINE PHOSPHATASE 87 U/L (45-117); INDIRECT BILIRUBIN 0.1 MG/DL (0.0-0.8); TOTAL BILIRUBIN ADULT 0.2 MG/DL (0.2-1.0)
--- NOTE | 2017-04-21 22:22 | RADRPT ---
EXAM DATE/TIME: 04/21/2017 21:23 [facility] COMPARISON: CT CERVICAL SPINE W/O CONTRAST, March 24, 2017, 10:36. INDICATIONS : Radiculopathy. MEDICAL HISTORY : Hypertension. Diabetes. Kidney disease. SURGICAL HISTORY : Knee replacement, bi-lateral. Right great toe. ENCOUNTER: Initial ACUITY: 3 months PAIN SCORE: 8/10 LOCATION: back TECHNIQUE: Multiplanar multisequence MRI of the thoracic spine was performed. FINDINGS: VERTEBRA: Normal vertebral body height. Homogeneous marrow signal. Mild disc desiccation. Mild multilevel oste ophyte formation. ALIGNMENT: Normal. CORD: Normal position and configuration. T1-T2: Normal. T2-T3: Mild disc protrusion without canal or foraminal narrowing. T3-T4: Mild disc protrusion without canal or foraminal narrowing. This is greatest in the right foraminal re gion. T4-T5: Mild disc protrusion without canal narrowing. This is greatest in the right foraminal region. T5-T6: The thecal sac has a normal diameter. No evidence of disc bulge or protrusion. T6-T7: The thecal sac has a normal diameter. No evidence of disc bulge or protrusion. T7-T8: The thecal sac has a normal diameter. No evidence of disc bulge or protrusion. T8-T9: The thecal sac has a normal diameter. No evidence of disc bulge or protrusion. T9-T10: The thecal sac has a normal diameter. No evidence of disc bulge or protrusion. T10-T11: The thecal sac has a normal diameter. No evidence of disc bulge or protrusion. T11-T12: The thecal sac has a normal diameter. No evidence of disc bulge or protrusion. T12-L1: The thecal sac has a normal diameter. No evidence of disc bulge or protrusion. CONCLUSION: 1. Mild degenerative changes without canal or foraminal stenosis. Tiny disc protrusions are suspected at T2-3 through T4-5 on the right. Cas Brown MD on April 21, 2017 at 22:17 Board Certified Radiologist. This report was verified electronically.
[2017-04-21 23:22] VITALS: BP 136/76; PULSE 92; RESP 17; TEMP 96.7; O2SAT 96
[2017-04-22] VITALS (8 sets, daily range): BP systolic 128–167; BP diastolic 74–87; PULSE 67–86; RESP 17–20; TEMP 96.7–98.4; O2SAT 94–98
[2017-04-22] MEDS: ACETAMINOPHEN 1000 MG/100 ML VIAL IV SCH ×2 (00:42→06:30)
[2017-04-22] MEDS: MORPHINE SULFATE 8 MG/ML INJ IV PUSH PRN ×2 (04:24→10:44)
[2017-04-22] MEDS: HEPARIN SODIUM - SQ 10,000 UNITS/ML VIAL SQ SCH ×3 (06:10→21:16)
[2017-04-22] MEDS: INSULIN ASPART SUPPLEMENTAL SCALE SQ SCH ×4 (06:11→21:19)
[2017-04-22] MEDS: SODIUM CHLORIDE 0.9% FLUSH 10 ML FLUSH IV FLUSH SCH ×2 (08:29→21:00)
[2017-04-22] MEDS: DOCUSATE SODIUM 50 MG/SENNA 8.6 MG TAB PO SCH ×2 (08:29→21:17)
[2017-04-22] MEDS: LISINOPRIL 20 MG TAB PO SCH (08:30)
--- NOTE | 2017-04-22 11:16 | HHI.HP ---
[facility] Service Family Medicine Primary Care Physician Tanisha Hernandez MD Admission Diagnosis low back pain Diagnoses: (1) Low back pain (2) CKD (chronic kidney disease) (3) Hypertension (4) Diabetes (5) DVT prophylaxis (6) FEN International Travel<30 Days: No Contact w/Intl Traveler<30days: No Known Affected Area: No History of Present Illness No acute events overnight patient's pain has been somewhat controlled with morphine. He still continues to complain of pain, worse on the right side with radiation down his right leg. Describes it as a sharp, shooting, electrical type pain and states that the morphine helps for approximately 1-2 hours but does not provide relief between doses. He also complains of some constipation, stating that he has not had a bowel movement last 3 days and that his abdomen feels full. He denies any fevers or chills, denies any issues with urinating, denies any chest pain or palpitations. In summary, this is a 76-year-old male with a history of diabetes who presented to the ED today for 3 months of progressively worsening, intractable right- sided lower back pain that limits his ability to ambulate. Patient presents with his who provides much of the history. Patient has tried [place], but this does nothing for his pain. His pain is exacerbated by movement. He describes the pain as sharp. He currently rates his pain severity as an 9 out of 10. He denies any urinary or bowel incontinence, saddle anesthesia. Patient presented to his primary care provider, Dr. Hernandez, about 3 months ago with pain in his right side. He then went to 2 different emergency department with complaints of constipation. When he went home, he still right sided pain that radiated down his leg. 2 days ago, the patient presented again to Dr. Aleksandra Pruitt with complaints of pain. MRI was ordered. Dr. Hernandez called and told pt's that pain medications wouldn't help because the patient needs neurosurgery. Patient was referred to Dr. Martinez as an outpatient, but has not yet had the opportunity to see him. Last night, the patient was screaming in pain and couldn't walk. He reports that the pain was down his right leg and up his neck. He tried to walk today, but couldn't walk secondary to pain. Patient was brought in by EMS who gave him morphine on the way. His last bowel movement was 2 days ago on Monday. Review of Systems Constitutional: DENIES: Fatigue, Fever, Chills Respiratory: DENIES: Cough, Wheezing, Sputum production, Shortness of breath Cardiovascular: DENIES: Chest pain, Palpitations, Syncope Gastrointestinal: COMPLAINS OF: Constipation, DENIES: Abdominal pain, Black stools, Bloody stools, Diarrhea, Nausea, Vomiting Musculoskeletal: COMPLAINS OF: Joint pain, Back pain, Neck pain, DENIES: Joint Swelling Neurologic: COMPLAINS OF: Abnormal gait, Localized weakness, Paresthesias Past Family Social History Past Medical History DM2 Hyperlipidemia History of anxiety, now controlled Sleep apnea-being followed by specialists. Requires CPAP CKD stage 3 Allergies: Seasonal allergies, no known drug allergies Health maintenance: Incidental lung nodule seen on CT in 01/2017: Need repeat imaging on the following intervals 3, 9, 24 months. Next due date will be in 05/2017 Colonoscopy: around 2011 Influenza vaccine: [id number] season Pneumovax: Received from [facility] 2014 Diabetic foot exam: 02/10/2016 Diabetic microalbumin: to be ordered at next visit Diabetic Eye exam: has routine eye care by [facility], will clarify last examination date (Referral was provided on 11/2015) Past Surgical History R knee arthroplasty 2012 Left knee arthroplasty 2013 Right foot bunion-December 2012, revision in 2013 Allergies: Coded Allergies: No Known Allergies (Unverified , 04/19/17) Family History Father at 65yo due to stroke. Hx of Parkinson's syndrome Mother due to renal cancer at 49yo Brother 65yo due to stroke/GA Sister with breast cancer and bone cancer-age 74 Son living with emphysema Daughter living- limited contact. 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 Quit >40 years ago EtOH: denies Illicit drugs: denies Physical Exam Vital Signs Vital Signs Date Time Temp Pulse Resp B/P Pulse Ox O2 Delivery O2 Flow Rate FiO2 04/22/17 08:15 97.9 85 18 166/80 95 04/22/17 03:54 97.4 86 17 159/78 98 04/21/17 23:22 96.7 92 17 136/76 96 04/21/17 19:31 98.2 109 18 170/87 94 04/21/17 16:44 96.3 86 20 148/67 94 04/21/17 13:53 96.0 77 18 142/68 94 04/21/17 11:27 89 18 125/64 99 Physical Exam GENERAL: This is a well-nourished, well-developed patient, in no apparent distress. SKIN: No rashes, ecchymoses or lesions. Cool and dry. HEAD: Atraumatic. Normocephalic. No temporal or scalp tenderness. EYES: Pupils equal round and reactive. Extraocular motions intact. No scleral icterus. No injection or drainage. ENT: Nose without bleeding, purulent drainage or septal hematoma. Throat without erythema, tonsillar hypertrophy or exudate. Uvula midline. Airway patent. NECK: Trachea midline. No JVD or lymphadenopathy. Supple, nontender, no meningeal signs. CARDIOVASCULAR: Regular rate and rhythm without murmurs, gallops, or rubs. RESPIRATORY: Clear to auscultation. Breath sounds equal bilaterally. No wheezes , rales, or rhonchi. GASTROINTESTINAL: Abdomen soft, non-tender, nondistended. No hepato-splenomegaly , or palpable masses. No guarding. MUSCULOSKELETAL: Extremities without clubbing, cyanosis, or edema. No joint tenderness, effusion, or edema noted. No calf tenderness. Negative Homans sign bilaterally. NEUROLOGICAL: Awake and alert. Cranial nerves II through XII intact. Motor and sensory grossly within normal limits. Five out of 5 muscle strength in all muscle groups. Normal speech. Laboratory Laboratory Tests Test 04/21/17 12:40 Sodium Level 138 Potassium Level 4.2 Chloride Level 101 Carbon Dioxide Level 27.8 Anion Gap 9 Blood Urea Nitrogen 23 Creatinine 1.54 Estimat Glomerular Filtration 44 Rate Random Glucose 164 Calcium Level 9.4 Total Bilirubin 0.2 Direct Bilirubin LESS THAN 0.1 Indirect Bilirubin 0.1 Aspartate Amino Transf 21 (AST/SGOT) Alanine Aminotransferase 28 (ALT/SGPT) Alkaline Phosphatase 87 Total Protein 7.5 Albumin 3.7 Result Diagram: 04/21/17 1240 Imaging MRI of lumbar spine, without contrast, from 04/20/17 showed: Extruded disc on the right impinging on the traversing right L4 nerve root. Last 48 hours Impressions Thoracic Spine MRI 04/21/17 0000 Signed Impressions: Service Date/Time: Friday, April 21, 2017 21:23 - CONCLUSION: 1. Mild degenerative changes without canal or foraminal stenosis. Tiny disc protrusions are suspected at T2-3 through T4-5 on the right. Cas Brown MD Assessment and Plan Assessment and Plan Patient is a 76-year-old male with a history of diabetes who presented to the ED today for 3 months of progressively worsening, intractable right-sided lower back pain that limits his ability to ambulate. Extruded disc on the right impinging on the traversing right L4 nerve root on MRI. Will place patient in observation for pain control and neurosurgery consult. Problem List: (1) Protrusion of lumbar intervertebral disc Status: Acute Plan: Protruding lumbar disc with radicular symptoms - Received Decadron 10 mg IV 1 in the emergency department - Neurosurgery has evaluated patient and recommending surgical intervention on Pain control as below: Percocet 7.5/325 every 8 hours by mouth scheduled Return hours as needed for breakthrough pain Bowel regimen: Marleni-Colace twice a day Lactulose 30 mL daily as needed Milk of magnesia 30 mL as needed Consider fleets enema if no bowel movement today (2) CKD (chronic kidney disease) Status: Acute Plan: Patient with a history of CKD stage 3. Creatinine seems to be at baseline. Continue monitor (3) Hypertension Status: Chronic Plan: Hypertension controlled on medication. Continue home medication lisinopril 20 mg by mouth daily (4) Diabetes Status: Chronic Plan: Patient on multiple different oral medications to control his diabetes. Hold home medications Low dose sliding scale insulin (5) DVT prophylaxis Status: Acute Plan: DVT prophylaxis as below: Heparin 5000 units subcutaneous every 8 hours (6) FEN Status: Acute Plan: Fluids: By mouth Electrolytes: Monitor and replete Nutrition: Diabetic diet Physician Certification 2 Midnight Certification Type: Admission for Inpatient Services Order for Inpatient Services The services are ordered in accordance with Medicare regulations or non- Medicare payer requirements, as applicable. In the case of services not specified as inpatient-only, they are appropriately provided as inpatient services in accordance with the 2-midnight benchmark. Estimated LOS (days): 2 2 days is the estimated time the patient will need to remain in the hospital, assuming treatment plan goals are met and no additional complications. Post-Hospital Plan: Not yet determined Problem Qualifiers (1) Low back pain: Qualified Code: M54.5 - Acute right-sided low back pain without sciatica Killian Saucedo MD Apr 22, 2017 11:16
[2017-04-22] MEDS: LACTULOSE SYRUP 20 GM/30 ML CUP PO SCH ×3 (13:18→21:17)
[2017-04-22] MEDS: oxyCODONE/ACETAMINOPHEN 7.5 MG/325 MG TAB PO SCH ×2 (13:19→21:17)
--- NOTE | 2017-04-22 22:56 | HHI.NSPN ---
History Chief Complaint: back pain Interval History Patient presents to the emergency room complaining of primarily pain starting at the cervical thoracic midline, running straight down to the lumbosacral midline then across to the right posterior iliac crest and right flank and then circling around the right mid lumbar region back towards the midline. Initially he denies multiple times that he has any pain weakness or numbness in the lower extremities. Upon advising him regarding the MRI results with a right sided ruptured disc, he does state that for the past 4 days he has had pain with ambulation radiating to the posterior right thigh specifically, but not the anterolateral or medial thigh. No upper extremity pain weakness or numbness. Exam Results Vital Signs Date Time Temp Pulse Resp B/P Pulse Ox O2 Delivery O2 Flow Rate FiO2 04/22/17 20:39 94 04/22/17 19:39 98.4 67 18 128/74 Intake and Output 04/21/17 04/21/17 04/22/17 08:00 16:00 00:00 Intake Total 480 ml Output Total 1200 ml Balance -720 ml Physical Examination Awake and alert He appears to have difficulty with his memory and thought processes. Quite a bit of difficulty processing information. His speech is otherwise clear. He follows commands well. Sensation is intact throughout the upper and lower extremities Strength is normal in all major flexion and extension groups throughout the upper and lower extremities as well as hand intrinsics Clemente's response absent bilateral No ankle clonus Plantar responses are neutral No atrophy, fasciculation, or spasm noted in the upper or lower extremities. When asked indicate his area of pain, he focuses on "mass" at the cervical thoracic midline and the lower lumbar midline. Palpation of these areas healed complaint of mild tenderness. There is no edema or erythema or any palpable mass in these regions. The area that he is pushing on his the region overlying the protruding C7-T1 spinous processes and the lower lumbosacral midline region. No significant gluteal or lateral hip tenderness. No pain with hip range of motion. Lab, Micro, Other Results 04/21/17 thoracic MRI images are reviewed. Agree with the below findings. Thoracic Spine MRI 04/21/17 0000 Signed Impressions: Service Date/Time: Friday, April 21, 2017 21:23 - CONCLUSION: 1. Mild degenerative changes without canal or foraminal stenosis. Tiny disc protrusions are suspected at T2-3 through T4-5 on the right. Cas Brown MD Medical Decision Making Impression and Plan Impression: 1. Right L3-4 herniated nucleus pulposis 2. No right L3 or L4 distribution pain, motor deficit, or sensory changes. Only with repetitive questioning does he indicate that he has had some pain in the right posterior thigh for the past few days. He states that this pain is improving. He appears to have myofascial type pain radiating from the cervical thoracic and lumbosacral junctions and a circuitous fashion around the right lower lumbar region and flank. I do not see definite etiology otherwise for this pain. Plan: Findings were discussed with the patient. He seems to have some difficulty with judgment and insight. I suggested that it would be best that I discussed the findings with both he and his prior to making any decisions regarding surgical intervention in versus pain management or more conservative treatment measures for the L3 4 disc herniation. I suspect that he will improve with more conservative measures including physical therapy, medications, and possibly pain management intervention. Maury Martinez MD Apr 22, 2017 22:56
[2017-04-23 04:01] VITALS: BP 167/87; PULSE 79; RESP 18; TEMP 96.7; O2SAT 94
[2017-04-23] MEDS: oxyCODONE/ACETAMINOPHEN 7.5 MG/325 MG TAB PO SCH (05:13)
[2017-04-23] MEDS: HEPARIN SODIUM - SQ 10,000 UNITS/ML VIAL SQ SCH ×3 (05:14→20:30)
[2017-04-23] MEDS: INSULIN ASPART SUPPLEMENTAL SCALE SQ SCH ×4 (05:26→20:36)
[2017-04-23] MEDS ORDERED: CALCIUM CARBONATE 500 MG CHEWABLE TAB CHEW ONE (05:30)
[2017-04-23 06:38] LABS: BICARBONATE 30.3 MEQ/L (21.0-32.0); POTASSIUM 3.9 MEQ/L (3.5-5.1)
[2017-04-23] MEDS: MORPHINE SULFATE 8 MG/ML INJ IV PUSH PRN ×2 (06:46→12:11)
[2017-04-23 08:00] VITALS: BP 132/90; PULSE 70; RESP 18; TEMP 96.3; O2SAT 96
[2017-04-23] MEDS: DOCUSATE SODIUM 50 MG/SENNA 8.6 MG TAB PO SCH ×2 (09:00→20:29)
--- NOTE | 2017-04-23 09:38 | HHI.FPPN ---
Subjective Remarks Pt. is complaining of some sharp, right sided low back pain this morning radiating into his buttocks. He states that he got up to use the restroom and that he urinated on himself on his way to the restroom, which has never happened to him before. He required a dose of morphine this morning to help with the pain. Prior to this morning's exacerbation of pain, he was tolerating the Percocet relatively well. He denies leg weakness or giving out, denies radiation of pain down his leg, denies constipation this morning. He has been ambulating without issue He also is complaining of diarrhea (started on lactulose yesterday for constipation) and GERD symptoms this morning. Denies melena/hematochezia. Denies nausea/vomiting, denies chest pain/palpitations, denies shortness of breath. Objective Vitals Vital Signs Date Time Temp Pulse Resp B/P Pulse Ox O2 Delivery O2 Flow Rate FiO2 04/23/17 04:01 96.7 79 18 167/87 94 04/22/17 23:03 96.7 79 18 157/87 97 04/22/17 20:39 94 04/22/17 19:39 98.4 67 18 128/74 95 04/22/17 15:57 97.8 85 18 162/80 97 04/22/17 12:37 97.9 85 20 166/80 95 I/O 04/22/17 04/22/17 04/22/17 04/23/17 04/23/17 04/23/17 07:00 15:00 23:00 07:00 15:00 23:00 Intake Total 925 ml 720 ml Output Total 825 ml Balance -825 ml 925 ml 720 ml Intake Oral 925 ml 720 ml Output Urine Total 825 ml # Voids 1 4 7 # Bowel Movements 1 8 Result Diagram: 04/23/17 0527 Imaging Last 72 hours Impressions Thoracic Spine MRI 04/21/17 0000 Signed Impressions: Service Date/Time: Friday, April 21, 2017 21:23 - CONCLUSION: 1. Mild degenerative changes without canal or foraminal stenosis. Tiny disc protrusions are suspected at T2-3 through T4-5 on the right. Cas Brown MD Objective Remarks GENERAL: This is a well-nourished, well-developed patient, in no apparent distress. EYES: Pupils equal round and reactive. Extraocular motions intact. No scleral icterus. No injection or drainage. CARDIOVASCULAR: Regular rate and rhythm without murmurs, gallops, or rubs. RESPIRATORY: Clear to auscultation. Breath sounds equal bilaterally. No wheezes , rales, or rhonchi. GASTROINTESTINAL: Abdomen soft, non-tender, nondistended. No guarding. MUSCULOSKELETAL: Extremities without clubbing, cyanosis, or edema. No swelling or rash over back. (+) Tender to palpation in right paraspinal musculature. NEUROLOGICAL: Awake and alert. Normal speech. A/P Assessment and Plan Patient is a 76-year-old male with a history of diabetes who presented to the ED today for 3 months of progressively worsening, intractable right-sided lower back pain that limits his ability to ambulate. Extruded disc on the right impinging on the traversing right L4 nerve root on MRI. Discharge Planning Pending neurosurgery recommendations - discharge in 1-2 days with pain control if conservative management is elected Problem List: (1) Protrusion of lumbar intervertebral disc Status: Acute Plan: Neurosurgery has evaluated patient and does not feel that pain correlates directly with findings on MRI - per patient, NS is planning to discuss options today with present. - Possible surgical intervention vs. conservative management with PT/pain control Pain control as below: Percocet 7.5/325 every 8 hours by mouth scheduled Morphine 3mg every 3 hours as needed for breakthrough pain - Will add tizanidine 4mg po every 8 hours as needed - Received Decadron 10 mg IV 1 in the emergency department Physical therapy to evaluate patient and begin rehabilitation - will need to continue this as an outpatient Bowel regimen: Marleni-Colace twice a day Lactulose 30 mL daily as needed Milk of magnesia 30 mL as needed (2) CKD (chronic kidney disease) Status: Acute Plan: Patient with a history of CKD stage 3. Creatinine seems to be at baseline. Continue monitor (3) GERD (gastroesophageal reflux disease) Status: Chronic Plan: Started on ranitidine 150mg bid - Tums as needed (4) Hypertension Status: Chronic Plan: Hypertension controlled on medication. Continue home medication lisinopril 20 mg by mouth daily (5) Diabetes Status: Chronic Plan: Patient on multiple different oral medications to control his diabetes. Hold home medications Low dose sliding scale insulin (6) DVT prophylaxis Status: Acute Plan: DVT prophylaxis as below: Heparin 5000 units subcutaneous every 8 hours (7) FEN Status: Acute Plan: Fluids: By mouth Electrolytes: Monitor and replete Nutrition: Diabetic diet Killian Saucedo MD Apr 23, 2017 09:38
[2017-04-23] MEDS ORDERED: CALCIUM CARBONATE 500 MG CHEWABLE TAB CHEW PRN (09:45)
[2017-04-23] MEDS: LISINOPRIL 20 MG TAB PO SCH (09:58)
[2017-04-23] MEDS: FAMOTIDINE 20 MG TAB PO SCH ×2 (09:59→20:29)
[2017-04-23] MEDS: SODIUM CHLORIDE 0.9% FLUSH 10 ML FLUSH IV FLUSH SCH ×2 (09:59→20:30)
[2017-04-23 12:00] VITALS: BP 123/71; PULSE 75; RESP 18; TEMP 96.3; O2SAT 97
--- NOTE | 2017-04-23 14:08 | HHI.NSPN ---
(Chase Moncada) History Chief Complaint: Pain to the back and across the chest (Chase Moncada) Interval History 04/21: The patient presented to the emergency department this morning due to an inability to walk and severe pain to the neck and lower back. During the night the patient woke up screaming due to the pain. When he attempted to get out of bed this morning he was not able to stand up on his legs. Therefore his called 911 and he was transported to [place]. He does report a history of low back pain that was mild for years. Approximately two or three months ago the patient had right lateral abdominal/flank pain and saw his primary who though it was muscular. After that he traveled to [place] and presented to an emergency department there due to right-sided pain and constipation. After several hours there without any treatment he left. After returning to the [facility] he presented to the emergency department at [facility] and had a CT scan done. While there he had four enemas for the constipation. Over the past two or three weeks the pain has gradually worsened. On the patient saw his primary due to the pain and she ordered MRIs of the cervical and lumbar spine which were done that day. After completion the primary called the and told her that Pain Management would be of no benefit and was referring him to Neurosurgery due to an extrusion of a disc to the lumbar spine. He states that he has pain into both hips and shoulders, across the chest and the abdomen with the worse being to the right lateral abdomen/flank. The pain is constant and varies in intensity and is aggravated by movement. He reported some numbness to the distal fingertips of the left hand. He denies any numbness or tingling into the upper or lower extremities otherwise. He denies any incontinence of urine or stool. He has not had any relief with either ibuprofen or tramadol. There is no known precipitating event. 04/22: Patient presents to the emergency room complaining of primarily pain starting at the cervical thoracic midline, running straight down to the lumbosacral midline then across to the right posterior iliac crest and right flank and then circling around the right mid lumbar region back towards the midline. Initially he denies multiple times that he has any pain weakness or numbness in the lower extremities. Upon advising him regarding the MRI results with a right sided ruptured disc, he does state that for the past 4 days he has had pain with ambulation radiating to the posterior right thigh specifically, but not the anterolateral or medial thigh. No upper extremity pain weakness or numbness. 04/23: The patient is seen with Dr Martinez this afternoon and is doing well. He still has his generalised complaint of pain without any change in it. His , and the patient to a lesser extent, are still insistent that he needs surgery. (Chase Moncada) System Review Comments Constitutional: Patient denies any fever or chills. HEENT: Patient denies any visual or hearing difficulty or thoat problems. Respiratory: Patient denies any shortness of breath or productive cough. Cardiovascular: Patient has pain across the chest from his back. He denies any palpitations or irregular heartbeat. Gastrointestinal: Patient has pain across the abdomen, especially the right side. He denies any nausea, vomiting or incontinence of stool. Genitourinary: Patient denies any incontinence of urine. Musculoskeletal: Patient has pain to the neck, back, both shoulders and hips. Neurologic: Patient continues with back pain that radiates across the chest and abdomen. He denies dizziness, tingling or numbness. (Chase Moncada) Exam Results Vital Signs Date Time Temp Pulse Resp B/P Pulse Ox O2 Delivery O2 Flow Rate FiO2 04/23/17 12:00 96.3 75 18 123/71 97 Intake and Output 04/22/17 04/22/17 04/23/17 08:00 16:00 00:00 Intake Total 1285 ml Output Total 825 ml Balance -825 ml 1285 ml (Chase Moncada) Physical Examination GENERAL: The patient appears comfortable w/o any apparent distress, he readily interacts. SKIN: Warm, dry & intact, no evident discolouration, rashes, ulceration or other lesions. HEENT: Normocephalic, atraumatic. NECK: Midline TTP at C7-T1 spinous process, neck supple, no JVD, no adenopathy, trachea midline. CARDIOVASCULAR: S1S2 w/RRR w/o M/G/R, radial & pedal pulses 2+ bilaterally, cap refill < 2 sec, no pedal edema. RESPIRATORY: CTAB w/o W/R/R, equal excursion, nonlaboured, on RA. GASTROINTESTINAL: Abdomen soft, TTP to right lateral & flank, positive bowel sounds. MUSCULOSKELETAL: POTTS w/o difficulty. TTP at right costovertebral angle on the ribs. TTP at the C7-T1 spinous process and the lower midline lumbosacral region. NEUROLOGICAL: AAOx3 Speech clear, appropriate but delayed Sensation intact to light touch to all extremities Motor strength 5/5 to all major flexion & extension muscle groups PSYCHIATRIC: Patient with slightly flat affect, readily interacts. (Chase Moncada) Lab, Micro, Other Results Allergies Coded Allergies Type Severity Reaction Last Updated Verified No Known Allergies 04/19/17 No Recent Impressions Thoracic Spine MRI 04/21/17 0000 Signed Impressions: Service Date/Time: Friday, April 21, 2017 21:23 - CONCLUSION: 1. Mild degenerative changes without canal or foraminal stenosis. Tiny disc protrusions are suspected at T2-3 through T4-5 on the right. Cas Brown MD //// 06:00 18:00 06:00 18:00 06:00 18:00 Intake Total 480 ml 1285 ml 360 ml Output Total 800 ml 400 ml 825 ml Balance -320 ml -400 ml -825 ml 1285 ml 360 ml Intake Oral 480 ml 1285 ml 360 ml Output Urine Total 800 ml 400 ml 825 ml # Voids 1 7 4 # Bowel Movements 1 4 4 Laboratory Tests Test 04/21/17 04/23/17 12:40 05:27 Sodium Level 138 MEQ/L 137 MEQ/L Potassium Level 4.2 MEQ/L 3.9 MEQ/L Chloride Level 101 MEQ/L 100 MEQ/L Carbon Dioxide Level 27.8 MEQ/L 30.3 MEQ/L Anion Gap 9 MEQ/L 7 MEQ/L Blood Urea Nitrogen 23 MG/DL 25 MG/DL Creatinine 1.54 MG/DL 1.45 MG/DL Estimat Glomerular Filtration 44 ML/MIN 47 ML/MIN Rate Random Glucose 164 MG/DL 159 MG/DL Calcium Level 9.4 MG/DL 9.2 MG/DL Total Bilirubin 0.2 MG/DL Direct Bilirubin LESS THAN 0.1 MG/DL Indirect Bilirubin 0.1 MG/DL Aspartate Amino Transf 21 U/L (AST/SGOT) Alanine Aminotransferase 28 U/L (ALT/SGPT) Alkaline Phosphatase 87 U/L Total Protein 7.5 GM/DL Albumin 3.7 GM/DL Vital Signs Date Time Temp Pulse Resp B/P Pulse Ox O2 Delivery O2 Flow Rate FiO2 04/23/17 12:00 96.3 75 18 123/71 97 04/23/17 08:00 96.3 70 18 132/90 96 04/23/17 04:01 96.7 79 18 167/87 94 04/22/17 23:03 96.7 79 18 157/87 97 04/22/17 20:39 94 04/22/17 19:39 98.4 67 18 128/74 95 04/22/17 15:57 97.8 85 18 162/80 97 04/22/17 12:37 97.9 85 20 166/80 95 04/22/17 08:15 97.9 85 18 166/80 95 04/22/17 03:54 97.4 86 17 159/78 98 04/21/17 23:22 96.7 92 17 136/76 96 04/21/17 19:31 98.2 109 18 170/87 94 04/21/17 16:44 96.3 86 20 148/67 94 04/21/17 13:53 96.0 77 18 142/68 94 04/21/17 11:27 89 18 125/64 99 04/21/17 09:37 98.3 75 16 189/88 95 04/21/17 09:37 78 (Chase Moncada) Medical Decision Making Impression and Plan Impression: 1. Right L3-4 herniated nucleus pulposis 2. No right L3 or L4 distribution pain, motor deficit, or sensory changes. Only with repetitive questioning does he indicate that he has had some pain in the right posterior thigh for the past few days. He states that this pain is improving. He appears to have myofascial type pain radiating from the cervical thoracic and lumbosacral junctions and a circuitous fashion around the right lower lumbar region and flank. I do not see definite etiology otherwise for this pain. The patient remains stable w/o any significant change. Plan: Plan of care discussed with patient and . Primary management per Hospitalist. Will obtain bone scan. Will obtain CBC, ESR, CRP and rheumatoid factor screen. Possible OR for the L3-4 disc herniation but it is doubtful that this will truly benefit the patient and this has been discussed with him and his . ( Chase Moncada) Attending Statement I have personally seen and examined the patient on the date of this note. Pertinent documentation and study results have been reviewed by the undersigned. I have personally developed the treatment plan and performed medical decision making. Agree with findings, exam, and treatment plan as noted above. Patient remains with tenderness primarily at the cervical thoracic and lumbosacral midline. This appears to be primarily myofascial pain. He has quite a bit of tenderness over the right costal margin and upper right flank with some crepitance with compression of the right lower rib cage. He does indicate some occasional pain radiating to the right lower extremity but this is primarily at the posterior thigh, primarily S1 distribution. He does not have any right L4 pain symptoms or sensory or motor deficit. On discussion with the patient and his regarding the present findings. It seems unlikely that the right L3 4 disc herniation and see primary source of his pain given the lack of corresponding symptoms. His pain symptoms are quite diffuse. He does have some rib pain, and although unlikely, would like to rule out metastatic disease or other diffuse osseous lesions. We will proceed with a bone scan. Also further laboratory testing for diffuse inflammatory disorder. Renal stone seems unlikely that he does have pain radiating to the right mid upper flank. We will check CT abdomen. His pain medications of been adjusted. Continue physical therapy Discussed with medicine service today. (Maury Martinez MD) Chase Moncada Apr 23, 2017 14:08 Maury Martinez MD Apr 23, 2017 15:46
[2017-04-23 14:45] LABS: AUTOMATED NEUTROPHIL # 4.5 TH/MM3 (1.8-7.7); BASOPHIL # 0.1 TH/MM3 (0-0.2); BASOPHIL % 0.8 % (0.0-2.0); EOSINOPHIL # 0.6 TH/MM3 (0-0.4); EOSINOPHIL % 7.5 % (0.0-4.0); HEMATOCRIT 36.4 % (39.0-51.0); HEMO FLAGS DIFF FINAL; LYMPH % 27.4 % (9.0-44.0); LYMPHOCYTE # 2.4 TH/MM3 (1.0-4.8); MEAN CELL VOLUME 89.4 FL (80.0-100.0); MEAN CORPUSCULAR HEMOGLOBIN 30.4 PG (27.0-34.0); MONO % 11.3 % (0.0-8.0); PLATELET COUNT 289 TH/MM3 (150-450); RED BLOOD COUNT 4.08 MIL/MM3 (4.50-5.90); RED CELL DISTRIBUTION WIDTH 13.7 % (11.6-17.2); WHITE BLOOD COUNT 8.6 TH/MM3 (4.0-11.0)
[2017-04-23 15:02] LABS: RHEUMATOID FACTOR TRIGGER LESS THAN 10.0 IU/ML (0.0-14.9)
[2017-04-23 15:07] LABS: WESTERGREN SEDIMENTATION RATE 41 mm/hr (0-20)
[2017-04-23 16:00] VITALS: BP 133/75; PULSE 72; RESP 18; TEMP 95.8; O2SAT 96
[2017-04-23] MEDS: oxyCODONE/ACETAMINOPHEN 7.5 MG/325 MG TAB PO PRN ×2 (16:23→20:30)
--- NOTE | 2017-04-23 17:53 | RADRPT ---
EXAM DATE/TIME: 04/23/2017 17:39 [facility] COMPARISON: No previous studies available for comparison. INDICATIONS : Abdomen pain. ORAL CONTRAST: No oral contrast ingested. RADIATION DOSE: 11.89 CTDIvol (mGy) MEDICAL HISTORY : Cardiovascular disease. Hypertension. SURGICAL HISTORY : None. ENCOUNTER: Initial ACUITY: 1 day PAIN SCALE: 4/10 LOCATION: Bilateral abdomen. TECHNIQUE: Volumetric scanning of the abdomen and pelvis was performed. Using automated exposure control and ad justment of the mA and/or kV according to patient size, radiation dose was kept as low as reasonably achievable to obtain optimal diagnostic quality images. DICOM format image data is available electro nically for review and comparison. FINDINGS: LOWER LUNGS: The visualized lower lungs are clear. There is however a 7-8 mm nodule right lower lobe. LIVER: Homogeneous density without lesion. There is no dilation of the biliary tree. No calcified gallston es. SPLEEN: Normal size without lesion. PANCREAS: Within normal limits. KIDNEYS: Normal in size and shape. There is no mass, stone, or hydronephrosis. ADRENAL GLANDS: Within normal limits. VASCULAR: There is no aortic aneurysm. Atherosclerotic changes. BOWEL/MESENTERY: A few scattered diverticula in the sigmoid colon without diverticulitis.. There is no free intraperi toneal air or fluid. ABDOMINAL WALL: Within normal limits. RETROPERITONEUM: There is no lymphadenopathy. BLADDER: No wall thickening or mass. REPRODUCTIVE: Within normal limits. INGUINAL: There is no lymphadenopathy or hernia. MUSCULOSKELETAL: Within normal limits for patient age. CONCLUSION: 1. 7-8 mm nodule right lower lobe. Followup CT chest in 3 months recommended for stability. 2. No renal calculi or hydronephrosis. 3. No acute inflammatory process. 4. Scattered diverticulosis without diverticulitis. Renny Stanton MD on April 23, 2017 at 17:49 Board Certified Radiologist. This report was verified electronically.
[2017-04-23 20:37] VITALS: BP 124/69; PULSE 77; RESP 16; TEMP 96.3; O2SAT 97
[2017-04-23 23:45] VITALS: BP 116/68; PULSE 78; RESP 17; TEMP 96.5; O2SAT 95
[2017-04-24] MEDS: oxyCODONE/ACETAMINOPHEN 7.5 MG/325 MG TAB PO PRN ×4 (05:30→20:53)
[2017-04-24] MEDS: HEPARIN SODIUM - SQ 10,000 UNITS/ML VIAL SQ SCH ×3 (05:30→23:43)
[2017-04-24] MEDS: INSULIN ASPART SUPPLEMENTAL SCALE SQ SCH ×4 (05:36→21:06)
[2017-04-24 08:00] VITALS: BP 126/74; PULSE 84; RESP 16; TEMP 96.5; O2SAT 92
--- NOTE | 2017-04-24 08:39 | HHI.FPPN ---
Subjective Remarks No acute events overnight. Afebrile. Vitals are within normal limits. Pt complains of 8/10 b/l neck pain that travels down the back, says this is chronic. Also endorses right flank pain traveling toward the right abdomen. Reports that pain medicine has been making him constipated. Last BM was yesterday. Did not like the Lasix b/c had to go to bathroom constantly. PT came by yesterday to help pt with walker. States that he has trouble with walking b/ c of back pain and also experiencing some weakness in both legs Denies weight loss, fevers, and night sweats. 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 Pt would like to have a biopsy done outpatient for the neck mass. (Erica León MD R1) Objective Vitals Vital Signs Date Time Temp Pulse Resp B/P Pulse Ox O2 Delivery O2 Flow Rate FiO2 04/24/17 07:40 Room Air 04/23/17 23:45 96.5 78 17 116/68 95 04/23/17 20:37 96.3 77 16 124/69 97 04/23/17 16:00 95.8 72 18 133/75 96 04/23/17 12:00 96.3 75 18 123/71 97 I/O 04/23/17 04/23/17 04/23/17 04/24/17 04/24/17 04/24/17 06:59 14:59 22:59 06:59 14:59 22:59 Intake Total 720 ml 2000 ml 240 ml Output Total 500 ml 650 ml Balance 720 ml 2000 ml -260 ml -650 ml Intake Oral 720 ml 2000 ml 240 ml Output Urine Total 500 ml 650 ml # Voids 7 10 # Bowel Movements 8 6 0 (Erica León MD R1) Result Diagram: 04/23/17 1406 04/23/17 0527 Objective Remarks GENERAL: This is a well-nourished, well-developed patient, in no apparent distress. EYES: Pupils equal round and reactive. Extraocular motions intact. No scleral icterus. No injection or drainage. CARDIOVASCULAR: Regular rate and rhythm without murmurs, gallops, or rubs. RESPIRATORY: Clear to auscultation. Breath sounds equal bilaterally. No wheezes , rales, or rhonchi. GASTROINTESTINAL: Abdomen soft, non-tender, nondistended. No guarding. MUSCULOSKELETAL: Extremities without clubbing, cyanosis, or edema. No swelling or rash over back. (+) Tender to palpation in right paraspinal musculature. Full strength in hips and upper extremities. NEUROLOGICAL: Awake and alert. Normal speech. (Erica León MD R1) A/P Assessment and Plan Patient is a 76-year-old male with a history of diabetes who presented to the ED today for 3 months of progressively worsening, intractable right-sided lower back pain that limits his ability to ambulate. Extruded disc on the right impinging on the traversing right L4 nerve root on MRI. Neurosurgery consulted. CT of abdomen and pelvis 04/23 appeared normal, negative for renal calculi. CRP elevated at 1.80, possibly back pain due to inflammatory process. However, rheumatoid factor was negative. Pt will receive bone scan today to rule out metastatic disease. Discharge Planning Pending neurosurgery recommendations - discharge in 1-2 days with pain control if conservative management is elected (Erica León MD R1) Attending Attestation Pt. examined and case discussed with resident physicians I have read the above note and agree with the assessment/plan as discussed with me I was involved in all medical decision making for this patient Killian Saucedo MD (Killian Saucedo MD) Problem List: (1) Protrusion of lumbar intervertebral disc Status: Acute Plan: Neurosurgery has evaluated patient and does not feel that pain correlates directly with findings on MRI - per patient, NS is planning to discuss options today with present. - Possible surgical intervention vs. conservative management with PT/pain control Pain control as below: Percocet 7.5/325 every 8 hours by mouth scheduled Morphine 3mg every 3 hours as needed for breakthrough pain - Will add tizanidine 4mg po every 8 hours as needed - Received Decadron 10 mg IV 1 in the emergency department -CT of abdomen and pelvis, normal, ruling out possible renal stone -CRP elevated at 1.80, possibly back pain due to inflammatory process -Rheumatoid Factor negative -Bone scan - ordered to rule out metastatic disease, results pending Physical therapy to evaluate patient and begin rehabilitation - will need to continue this as an outpatient Bowel regimen: Marleni-Colace twice a day Lactulose 30 mL daily as needed Milk of magnesia 30 mL as needed (2) CKD (chronic kidney disease) Status: Acute Plan: Patient with a history of CKD stage 3. Creatinine seems to be at baseline. Continue monitor (3) GERD (gastroesophageal reflux disease) Status: Chronic Plan: Started on ranitidine 150mg bid - Tums as needed (4) Hypertension Status: Chronic Plan: Hypertension controlled on medication. Continue home medication lisinopril 20 mg by mouth daily (5) Diabetes Status: Chronic Plan: Patient on multiple different oral medications to control his diabetes. Hold home medications Low dose sliding scale insulin (6) DVT prophylaxis Status: Acute Plan: DVT prophylaxis as below: Heparin 5000 units subcutaneous every 8 hours (7) FEN Status: Acute Plan: Fluids: By mouth Electrolytes: Monitor and replete Nutrition: Diabetic diet (Erica León MD R1) Erica León MD R1 Apr 24, 2017 08:39 Killian Saucedo MD Apr 24, 2017 15:54
[2017-04-24] MEDS: DOCUSATE SODIUM 50 MG/SENNA 8.6 MG TAB PO SCH ×3 (08:45→20:53)
[2017-04-24] MEDS: LISINOPRIL 20 MG TAB PO SCH (08:45)
[2017-04-24] MEDS: SODIUM CHLORIDE 0.9% FLUSH 10 ML FLUSH IV FLUSH SCH ×2 (08:45→21:06)
[2017-04-24] MEDS: FAMOTIDINE 20 MG TAB PO SCH ×2 (08:45→20:53)
[2017-04-24] MEDS ORDERED: LACTULOSE SYRUP 20 GM/30 ML CUP PO PRN (09:00)
[2017-04-24 12:00] VITALS: BP 123/83; PULSE 76; RESP 16; TEMP 95.9; O2SAT 96
--- NOTE | 2017-04-24 15:31 | HHI.NSPN ---
(Chase Moncada) History Chief Complaint: Pain to the right lateral chest wall (Chase Moncada) Interval History 04/21: The patient presented to the emergency department this morning due to an inability to walk and severe pain to the neck and lower back. During the night the patient woke up screaming due to the pain. When he attempted to get out of bed this morning he was not able to stand up on his legs. Therefore his called 911 and he was transported to [place]. He does report a history of low back pain that was mild for years. Approximately two or three months ago the patient had right lateral abdominal/flank pain and saw his primary who though it was muscular. After that he traveled to [place] and presented to an emergency department there due to right-sided pain and constipation. After several hours there without any treatment he left. After returning to the [facility] he presented to the emergency department at [facility] and had a CT scan done. While there he had four enemas for the constipation. Over the past two or three weeks the pain has gradually worsened. On the patient saw his primary due to the pain and she ordered MRIs of the cervical and lumbar spine which were done that day. After completion the primary called the and told her that Pain Management would be of no benefit and was referring him to Neurosurgery due to an extrusion of a disc to the lumbar spine. He states that he has pain into both hips and shoulders, across the chest and the abdomen with the worse being to the right lateral abdomen/flank. The pain is constant and varies in intensity and is aggravated by movement. He reported some numbness to the distal fingertips of the left hand. He denies any numbness or tingling into the upper or lower extremities otherwise. He denies any incontinence of urine or stool. He has not had any relief with either ibuprofen or tramadol. There is no known precipitating event. 04/22: Patient presents to the emergency room complaining of primarily pain starting at the cervical thoracic midline, running straight down to the lumbosacral midline then across to the right posterior iliac crest and right flank and then circling around the right mid lumbar region back towards the midline. Initially he denies multiple times that he has any pain weakness or numbness in the lower extremities. Upon advising him regarding the MRI results with a right sided ruptured disc, he does state that for the past 4 days he has had pain with ambulation radiating to the posterior right thigh specifically, but not the anterolateral or medial thigh. No upper extremity pain weakness or numbness. 04/23: The patient is seen with Dr Martinez this afternoon and is doing well. He still has his generalised complaint of pain without any change in it. His , and the patient to a lesser extent, are still insistent that he needs surgery. 04/24: The patient states he is in pain when seen. His pain is localised to the right lateral abdomen. He denies any other pain. He had a CT of the abdomen and pelvis which demonstrated a right lower lobe nodule & scattered diverticulosis but no renal stones or any acute inflammatory process. This morning he had a bone scan done but the report is still pending. His sed rate and CRP were elevated yesterday afternoon. A rheumatoid screen was done but the results are still pending. (Chase Moncada) System Review Comments Constitutional: Patient denies any fever or chills. HEENT: Patient denies any visual or hearing difficulty. Respiratory: Patient denies any shortness of breath or productive cough. Cardiovascular: Patient denies any chest pain, palpitations or irregular heartbeat. Gastrointestinal: Patient has pain to the right side. He denies any nausea, vomiting or incontinence of stool. Genitourinary: Patient denies any incontinence of urine. Musculoskeletal: Patient denies any pain to the neck, back or extremities. Neurologic: Patient denies any headache, dizziness, tingling or numbness. ( Chase Moncada) Exam Results Vital Signs Date Time Temp Pulse Resp B/P Pulse Ox O2 Delivery O2 Flow Rate FiO2 04/24/17 12:00 95.9 76 16 123/83 96 04/24/17 07:40 Room Air Intake and Output 04/23/17 04/23/17 04/24/17 08:00 16:00 00:00 Intake Total 360 ml 2000 ml 240 ml Output Total 500 ml Balance 360 ml 2000 ml -260 ml (Chase Moncada) Physical Examination GENERAL: The patient appears comfortable w/o any apparent distress, he readily interacts. SKIN: Warm, dry & intact, no evident discolouration, rashes, ulceration or other lesions. HEENT: Normocephalic, atraumatic. NECK: No midline TTP, no JVD, trachea midline. CARDIOVASCULAR: S1S2 w/RRR w/o M/G/R, radial & pedal pulses 2+ bilaterally, cap refill < 2 sec, no pedal edema. RESPIRATORY: CTAB w/o W/R/R, equal excursion, nonlaboured, on RA. GASTROINTESTINAL: Abdomen soft, point TTP to right lateral abdominal wall/flank , positive bowel sounds. MUSCULOSKELETAL: POTTS w/o difficulty. No thoracolumbar or extremity TTP. NEUROLOGICAL: AAOx3 Speech clear, appropriate but delayed Sensation intact to light touch to all extremities Motor strength 5/5 to all major flexion & extension muscle groups PSYCHIATRIC: Patient with slightly flat affect, readily interacts. (Chase Moncada) Lab, Micro, Other Results Allergies Coded Allergies Type Severity Reaction Last Updated Verified No Known Allergies 04/19/17 No Recent Impressions Abdomen/Pelvis CT 04/23/17 0000 Signed Impressions: Service Date/Time: Sunday, April 23, 2017 17:39 - CONCLUSION: 1. 7-8 mm nodule right lower lobe. Followup CT chest in 3 months recommended for stability. 2. No renal calculi or hydronephrosis. 3. No acute inflammatory process. 4. Scattered diverticulosis without diverticulitis. Renny Stanton MD /// 06:00 18:00 06:00 18:00 06:00 18:00 Intake Total 1285 ml 2360 ml 240 ml Output Total 400 ml 825 ml 1150 ml Balance -400 ml -825 ml 1285 ml 2360 ml -910 ml Intake Oral 1285 ml 2360 ml 240 ml Output Urine Total 400 ml 825 ml 1150 ml # Voids 1 7 14 # Bowel Movements 1 4 10 0 Laboratory Tests Test 04/23/17 04/23/17 05:27 14:06 Sodium Level 137 MEQ/L Potassium Level 3.9 MEQ/L Chloride Level 100 MEQ/L Carbon Dioxide Level 30.3 MEQ/L Anion Gap 7 MEQ/L Blood Urea Nitrogen 25 MG/DL Creatinine 1.45 MG/DL Estimat Glomerular Filtration 47 ML/MIN Rate Random Glucose 159 MG/DL Calcium Level 9.2 MG/DL White Blood Count 8.6 TH/MM3 Red Blood Count 4.08 MIL/MM3 Hemoglobin 12.4 GM/DL Hematocrit 36.4 % Mean Corpuscular Volume 89.4 FL Mean Corpuscular Hemoglobin 30.4 PG Mean Corpuscular Hemoglobin 34.0 % Concent Red Cell Distribution Width 13.7 % Platelet Count 289 TH/MM3 Mean Platelet Volume 8.2 FL Neutrophils (%) (Auto) 53.0 % Lymphocytes (%) (Auto) 27.4 % Monocytes (%) (Auto) 11.3 % Eosinophils (%) (Auto) 7.5 % Basophils (%) (Auto) 0.8 % Neutrophils # (Auto) 4.5 TH/MM3 Lymphocytes # (Auto) 2.4 TH/MM3 Monocytes # (Auto) 1.0 TH/MM3 Eosinophils # (Auto) 0.6 TH/MM3 Basophils # (Auto) 0.1 TH/MM3 CBC Comment DIFF FINAL Differential Comment Erythrocyte Sedimentation Rate 41 mm/hr C-Reactive Protein 1.80 MG/DL Rheumatoid Factor Screen NEGATIVE Rheumatoid Factor Titer IU/ML Vital Signs Date Time Temp Pulse Resp B/P Pulse Ox O2 Delivery O2 Flow Rate FiO2 04/24/17 12:00 95.9 76 16 123/83 96 04/24/17 08:00 96.5 84 16 126/74 92 04/24/17 07:40 Room Air 04/23/17 23:45 96.5 78 17 116/68 95 04/23/17 20:37 96.3 77 16 124/69 97 04/23/17 16:00 95.8 72 18 133/75 96 04/23/17 12:00 96.3 75 18 123/71 97 04/23/17 08:00 96.3 70 18 132/90 96 04/23/17 04:01 96.7 79 18 167/87 94 04/22/17 23:03 96.7 79 18 157/87 97 04/22/17 20:39 94 04/22/17 19:39 98.4 67 18 128/74 95 04/22/17 15:57 97.8 85 18 162/80 97 04/22/17 12:37 97.9 85 20 166/80 95 04/22/17 08:15 97.9 85 18 166/80 95 04/22/17 03:54 97.4 86 17 159/78 98 04/21/17 23:22 96.7 92 17 136/76 96 04/21/17 19:31 98.2 109 18 170/87 94 04/21/17 16:44 96.3 86 20 148/67 94 (Chase Moncada) Medical Decision Making Impression and Plan Impression: 1. Right L3-4 herniated nucleus pulposis 2. No right L3 or L4 distribution pain, motor deficit, or sensory changes. Only with repetitive questioning does he indicate that he has had some pain in the right posterior thigh for the past few days. He states that this pain is improving. He appears to have myofascial type pain radiating from the cervical thoracic and lumbosacral junctions and a circuitous fashion around the right lower lumbar region and flank. I do not see definite etiology otherwise for this pain. CT abdomen/pelvis demonstrates a right lower lobe nodule & scattered diverticulosis but no renal stones or any acute inflammatory process. Bone scan completed and report pending. Sed rate elevated (41) CRP elevated (1.80) Rheumatoid screen results pending The patient remains stable w/point tenderness & pain to the right lateral abdominal wall. Plan: Plan of care discussed with patient and . Primary management per Hospitalist. Possible OR for the L3-4 disc herniation but it is doubtful that this will truly benefit the patient and this has been discussed with him and his . ( hCase Moncada) Attending Statement I have personally seen and examined the patient on the date of this note. Pertinent documentation and study results have been reviewed by the undersigned. I have personally developed the treatment plan and performed medical decision making. Agree with findings, exam, and treatment plan as noted above. On my examination today, the patient is up in a chair. He remains quite painful. When asked indications area pain, he points primarily to the right lateral costal margin. He has moderate tenderness over the cervical thoracic midline. Milder tenderness over the lumbosacral midline. No significant right lower lumbar sacral paraspinous muscle or posterior iliac crest or gluteal or lateral hip tenderness. He has excruciating pain with palpation over the right lateral costal margin. I asked the patient and his how long the pain over the right costal margin has been present. He states for 3-4 months. It is noted that he did have an emergency room evaluation in late March 2017 in which she apparently reported pain primarily over the scapular region. He does indicate that he has had flareups of pain in varying joints and areas of his body. His sedimentation rate and CRP are mildly to moderately elevated. Rheumatoid screen pending. Potentially underlying inflammatory disease. Outpatient rheumatology evaluation would be appropriate. He would be a reasonable candidate for a right T11-12 intercostal nerve block with possible rhizotomy. We will see if this can be done on an inpatient basis. In the meantime we will begin him on a trial of gabapentin for potential neuropathic pain. Discussed at length with the patient and his in the room today and all questions answered. At this point he does not appear to be symptomatic from the right L3-4 chronic appearing disc herniation. On the CT scan of the abdomen and pelvis, there is calcification and some air in the region of the right L3-4 disc displacement, indicating a very chronic lesion. (Maury Martinez MD) Chase Moncada Apr 24, 2017 15:31 Maury Martinez MD Apr 24, 2017 19:26
--- NOTE | 2017-04-24 15:54 | RADRPT ---
EXAM DATE/TIME: 04/24/2017 09:27 [facility] COMPARISON: No previous studies available for comparison. PRIOR BONE SCANS: No correlative bone scan available for comparison. INDICATIONS : Cervical and thoracic spine pain with no history of trauma. DOSE: 31 mCi Tc99m MDP IV IMAGING: SPECT/CT imaging with fusion was performed. RADIATION DOSE: 5.74 CTDIvol (mGy) MEDICAL HISTORY : Hypercholesterolemia. Hypertension. Diabetes mellitus type 2. SURGICAL HISTORY : Bilateral knee surgery. ENCOUNTER: Initial ACUITY: 4 - 6 days PAIN SCALE: 4/10 LOCATION: Back. TECHNIQUE: Three hours post intravenous administration of radiotracer, whole body bone scan imaging was performe d. FINDINGS: There is mild uptake in the facets in the mid and lower cervical spine correlating with degenerative changes seen on the correlated whole-body CT. There is no uptake along the right costal margin. There is very minimal uptake in the high thoracic spine with some mild degenerative changes seen on t he correlated CT scan and MRI scan. CONCLUSION: Mild uptake as described above more prominent in the mid cervical facets and high thoracic spine cons istent with degenerative process. Leland Holguin MD FACR on April 24, 2017 at 15:48 Board Certified Radiologist. This report was verified electronically.
[2017-04-24 16:57] VITALS: BP 117/76; PULSE 78; RESP 16; TEMP 96.7; O2SAT 96
[2017-04-24] MEDS: GABAPENTIN 300 MG CAP PO SCH (20:53)
[2017-04-24 20:55] VITALS: BP 165/86; PULSE 82; RESP 17; TEMP 98.1; O2SAT 96
[2017-04-25] VITALS: BP 125/73; PULSE 79; RESP 17; TEMP 97.5; O2SAT 97
[2017-04-25] MEDS: HEPARIN SODIUM - SQ 10,000 UNITS/ML VIAL SQ SCH ×3 (03:42→21:30)
[2017-04-25 04:00] VITALS: BP 122/76; PULSE 83; RESP 18; TEMP 97; O2SAT 96
[2017-04-25] MEDS: INSULIN ASPART SUPPLEMENTAL SCALE SQ SCH ×4 (06:29→21:29)
[2017-04-25 07:18] LABS: HEMATOCRIT 34.1 % (39.0-51.0); MEAN CELL VOLUME 88.5 FL (80.0-100.0); MEAN CORPUSCULAR HEMOGLOBIN 30.3 PG (27.0-34.0); MEAN CORPUSCULAR HGB CONC 34.2 % (32.0-36.0); PLATELET COUNT 267 TH/MM3 (150-450); RED BLOOD COUNT 3.85 MIL/MM3 (4.50-5.90); RED CELL DISTRIBUTION WIDTH 13.9 % (11.6-17.2); REVIEW FLAG FINAL
[2017-04-25 07:40] LABS: BICARBONATE 28.9 MEQ/L (21.0-32.0)
[2017-04-25 08:00] VITALS: BP 108/59; PULSE 81; RESP 18; TEMP 97.2; O2SAT 94
[2017-04-25] MEDS: LISINOPRIL 20 MG TAB PO SCH (09:00)
[2017-04-25] MEDS: DOCUSATE SODIUM 50 MG/SENNA 8.6 MG TAB PO SCH ×2 (09:17→21:30)
[2017-04-25] MEDS: FAMOTIDINE 20 MG TAB PO SCH ×2 (09:20→21:30)
[2017-04-25] MEDS: GABAPENTIN 300 MG CAP PO SCH ×2 (09:20→21:30)
[2017-04-25] MEDS: SODIUM CHLORIDE 0.9% FLUSH 10 ML FLUSH IV FLUSH SCH ×2 (09:22→21:27)
--- NOTE | 2017-04-25 09:28 | HHI.FPPN ---
Subjective Remarks No acute events overnight. Pt lying in bed this morning. at bedside. Vitals are within normal limits. Afebrile. Denies CP and SOB. Pt complaining of right flank pain. (Erica León MD R1) Objective Vitals Vital Signs Date Time Temp Pulse Resp B/P Pulse Ox O2 Delivery O2 Flow Rate FiO2 04/25/17 08:00 97.2 81 18 108/59 94 04/25/17 04:00 97.0 83 18 122/76 96 04/25/17 00:00 97.5 79 17 125/73 97 04/24/17 20:55 98.1 82 17 165/86 96 04/24/17 16:57 96.7 78 16 117/76 96 04/24/17 12:00 95.9 76 16 123/83 96 I/O 04/24/17 04/24/17 04/24/17 04/25/17 04/25/17 04/25/17 07:00 15:00 23:00 07:00 15:00 23:00 Intake Total 480 ml 960 ml 240 ml Output Total 650 ml 700 ml Balance -650 ml 480 ml 260 ml 240 ml Intake Oral 480 ml 960 ml 240 ml Output Urine Total 650 ml 700 ml # Voids 2 1 # Bowel Movements 1 0 0 (Erica León MD R1) Result Diagram: 04/25/1761404/25/17614 Objective Remarks GENERAL: This is a well-nourished, well-developed patient. lying in bed CARDIOVASCULAR: Regular rate and rhythm without murmurs, gallops, or rubs. RESPIRATORY: Clear to auscultation. Breath sounds equal bilaterally. No wheezes , rales, or rhonchi. GASTROINTESTINAL: Abdomen soft, non-tender, nondistended. No guarding. MUSCULOSKELETAL: Extremities without clubbing, cyanosis, or edema. No swelling or rash over back. (+) Tender to palpation in right paraspinal musculature. Full strength in hips and upper extremities. (Erica León MD R1) A/P Assessment and Plan Patient is a 76-year-old male with a history of diabetes who presented to the ED today for 3 months of progressively worsening, intractable right-sided lower back pain that limits his ability to ambulate. Extruded disc on the right impinging on the traversing right L4 nerve root on MRI. Neurosurgery consulted. CT of abdomen and pelvis 04/23 appeared normal, negative for renal calculi. CRP elevated at 1.80, possibly back pain due to inflammatory process. Rheumatoid factor was negative. Bone scan showed degenerative process to the mid cervical facets and high thoracic spine. Pt was discussed with Dr. Espinoza and will be transferred over to [place] to have possible nerve block performed by Dr. Wiseman. (Erica León MD R1) Attending Attestation Patient examined and case discussed with resident physicians I have read the above note and agree with the assessment/plan as discussed with me I was involved in all medical decision making for this patient Killian Saucedo M.D. (Killian Saucedo MD) Problem List: (1) Protrusion of lumbar intervertebral disc Status: Acute Plan: Neurosurgery has evaluated patient and does not feel that pain correlates directly with findings on MRI. Pt complains of right flank pain, most likely due to T12 nerve pain. Pt discussed with Dr. Espinoza and will be transferred to [place] to have nerve block done by Dr. Wiseman. - Possible surgical intervention vs. conservative management with PT/pain control Pain control as below: Percocet 7.5/325 every 4 hours by mouth scheduled Morphine 3mg every 3 hours as needed for breakthrough pain Tizanidine 4mg po every 8 hours as needed - Received Decadron 10 mg IV 1 in the emergency department -CT of abdomen and pelvis, normal, ruling out possible renal stone -CRP elevated at 1.80, possibly back pain due to inflammatory process -Rheumatoid Factor negative -Bone scan - degenerative process to the mid cervical facets and high thoracic spine. -Physical therapy to evaluate patient and begin rehabilitation - will need to continue this as an outpatient -Bowel regimen: Marleni-Colace twice a day Lactulose 30 mL daily as needed Milk of magnesia 30 mL as needed (2) CKD (chronic kidney disease) Status: Acute Plan: Patient with a history of CKD stage 3. Creatinine seems to be at baseline. Continue monitor (3) GERD (gastroesophageal reflux disease) Status: Chronic Plan: Started on ranitidine 150mg bid - Tums as needed (4) Hypertension Status: Chronic Plan: Hypertension controlled on medication. Continue home medication lisinopril 20 mg by mouth daily (5) Diabetes Status: Chronic Plan: Patient on multiple different oral medications to control his diabetes. Hold home medications Low dose sliding scale insulin (6) DVT prophylaxis Status: Acute Plan: DVT prophylaxis as below: Heparin 5000 units subcutaneous every 8 hours (7) FEN Status: Acute Plan: Fluids: By mouth Electrolytes: Monitor and replete Nutrition: Diabetic diet (Erica León MD R1) Problem Qualifiers (1) CKD (chronic kidney disease): Qualified Code: N18.3 - Stage 3 chronic kidney disease (2) GERD (gastroesophageal reflux disease): Qualified Code: K21.9 - Gastroesophageal reflux disease without esophagitis (3) Hypertension: Qualified Code: I10 - Hypertension, unspecified type (4) Diabetes: Qualified Code: E11.8 - Type 2 diabetes mellitus with complication, with long- term current use of insulin Erica León MD R1 Apr 25, 2017 09:28 Killian Saucedo MD Apr 25, 2017 15:26
[2017-04-25] MEDS: oxyCODONE/ACETAMINOPHEN 7.5 MG/325 MG TAB PO PRN ×2 (09:36→17:16)
[2017-04-25 12:00] VITALS: BP 124/85; PULSE 83; RESP 18; TEMP 97.1; O2SAT 94
[2017-04-25] MEDS: MORPHINE SULFATE 8 MG/ML INJ IV PUSH PRN ×2 (12:19→21:28)
--- NOTE | 2017-04-25 12:27 | HHI.NSPN ---
(Chase Moncada) History Chief Complaint: Still with right side pain (Chase Moncada) Interval History 04/21: The patient presented to the emergency department this morning due to an inability to walk and severe pain to the neck and lower back. During the night the patient woke up screaming due to the pain. When he attempted to get out of bed this morning he was not able to stand up on his legs. Therefore his called 911 and he was transported to [place]. He does report a history of low back pain that was mild for years. Approximately two or three months ago the patient had right lateral abdominal/flank pain and saw his primary who though it was muscular. After that he traveled to [place] and presented to an emergency department there due to right-sided pain and constipation. After several hours there without any treatment he left. After returning to the [facility] he presented to the emergency department at [facility] and had a CT scan done. While there he had four enemas for the constipation. Over the past two or three weeks the pain has gradually worsened. On the patient saw his primary due to the pain and she ordered MRIs of the cervical and lumbar spine which were done that day. After completion the primary called the and told her that Pain Management would be of no benefit and was referring him to Neurosurgery due to an extrusion of a disc to the lumbar spine. He states that he has pain into both hips and shoulders, across the chest and the abdomen with the worse being to the right lateral abdomen/flank. The pain is constant and varies in intensity and is aggravated by movement. He reported some numbness to the distal fingertips of the left hand. He denies any numbness or tingling into the upper or lower extremities otherwise. He denies any incontinence of urine or stool. He has not had any relief with either ibuprofen or tramadol. There is no known precipitating event. 04/22: Patient presents to the emergency room complaining of primarily pain starting at the cervical thoracic midline, running straight down to the lumbosacral midline then across to the right posterior iliac crest and right flank and then circling around the right mid lumbar region back towards the midline. Initially he denies multiple times that he has any pain weakness or numbness in the lower extremities. Upon advising him regarding the MRI results with a right sided ruptured disc, he does state that for the past 4 days he has had pain with ambulation radiating to the posterior right thigh specifically, but not the anterolateral or medial thigh. No upper extremity pain weakness or numbness. 04/23: The patient is seen with Dr Martinez this afternoon and is doing well. He still has his generalised complaint of pain without any change in it. His , and the patient to a lesser extent, are still insistent that he needs surgery. 04/24: The patient states he is in pain when seen. His pain is localised to the right lateral abdomen. He denies any other pain. He had a CT of the abdomen and pelvis which demonstrated a right lower lobe nodule & scattered diverticulosis but no renal stones or any acute inflammatory process. This morning he had a bone scan done but the report is still pending. His sed rate and CRP were elevated yesterday afternoon. A rheumatoid screen was done but the results are still pending. 04/25:The patient was asleep but awakens to verbal stimuli. He complains of pain and when asked where it continues to be to the right lateral abdominal wall. He also is complaining that he is hungry and wants to eat and states that his went to get him something because he is diabetic and needs to eat. He then states that his blood sugar is elevated because he is so upset and stressed. He had a bone scan yesterday which demonstrated degenerative process to the mid cervical facets and high thoracic spine. (Chase Moncada [facility]) System Review Comments Constitutional: Patient denies any fever or chills. HEENT: Patient denies any visual or hearing difficulty. Respiratory: Patient denies any shortness of breath or productive cough. Cardiovascular: Patient denies any chest pain, palpitations or irregular heartbeat. Gastrointestinal: Patient has pain to the right side still. He denies any nausea, vomiting or incontinence of stool. Genitourinary: Patient denies any incontinence of urine. Musculoskeletal: Patient denies any pain to the neck, back or extremities. Neurologic: Patient denies any headache, dizziness, tingling or numbness. ( Chase Moncada) Exam Results Vital Signs Date Time Temp Pulse Resp B/P Pulse Ox O2 Delivery O2 Flow Rate FiO2 04/25/17 08:00 97.2 81 18 108/59 94 04/24/17 07:40 Room Air Intake and Output 04/24/17 04/24/17 04/25/17 08:00 16:00 00:00 Intake Total 480 ml 960 ml Output Total 650 ml 700 ml Balance -650 ml 480 ml 260 ml (Chase Moncdaa) Physical Examination GENERAL: The patient is asleep but awakens to verbal stimuli. He appears comfortable w/o any apparent distress and readily interacts. SKIN: Warm, dry & intact, no evident discolouration, rashes, ulceration or other lesions. HEENT: Normocephalic, atraumatic. NECK: No JVD, trachea midline. CARDIOVASCULAR: S1S2 w/RRR w/o M/G/R, radial & pedal pulses 2+ bilaterally, cap refill < 2 sec, no pedal edema. RESPIRATORY: CTAB w/o W/R/R, equal excursion, nonlaboured, on RA. GASTROINTESTINAL: Abdomen soft, point TTP to right lateral abdominal wall/flank , positive bowel sounds. MUSCULOSKELETAL: POTTS w/o difficulty. No thoracolumbar or extremity TTP. NEUROLOGICAL: AAOx3 Speech clear, appropriate but delayed Sensation intact to light touch to all extremities Motor strength 5/5 to all major flexion & extension muscle groups PSYCHIATRIC: Patient with flat affect, readily interacts. (Chase Moncada ) Lab, Micro, Other Results Allergies Coded Allergies Type Severity Reaction Last Updated Verified No Known Allergies 04/19/17 No Recent Impressions SPECT Scan-Bone Nuclear Medicine 04/24/17 0000 Signed Impressions: Service Date/Time: Monday, April 24, 2017 09:27 - CONCLUSION: Mild uptake as described above more prominent in the mid cervical facets and high thoracic spine consistent with degenerative process. Leland Holguin MD FACR Abdomen/Pelvis CT 04/23/17 0000 Signed Impressions: Service Date/Time: Sunday, April 23, 2017 17:39 - CONCLUSION: 1. 7-8 mm nodule right lower lobe. Followup CT chest in 3 months recommended for stability. 2. No renal calculi or hydronephrosis. 3. No acute inflammatory process. 4. Scattered diverticulosis without diverticulitis. Renny Stanton MD /// 06:00 18:00 06:00 18:00 06:00 18:00 Intake Total 1285 ml 2360 ml 240 ml 480 ml 960 ml 240 ml Output Total 1150 ml 700 ml Balance 1285 ml 2360 ml -910 ml 480 ml 260 ml 240 ml Intake Oral 1285 ml 2360 ml 240 ml 480 ml 960 ml 240 ml Output Urine Total 1150 ml 700 ml # Voids 7 14 2 1 # Bowel Movements 4 10 0 1 0 0 Laboratory Tests Test 04/23/17 04/23/17 04/25/17 05:27 14:06 06:15 Sodium Level 137 MEQ/L 136 MEQ/L Potassium Level 3.9 MEQ/L 4.0 MEQ/L Chloride Level 100 MEQ/L 99 MEQ/L Carbon Dioxide Level 30.3 MEQ/L 28.9 MEQ/L Anion Gap 7 MEQ/L 8 MEQ/L Blood Urea Nitrogen 25 MG/DL 25 MG/DL Creatinine 1.45 MG/DL 1.65 MG/DL Estimat Glomerular Filtration 47 ML/MIN 41 ML/MIN Rate Random Glucose 159 MG/DL 208 MG/DL Calcium Level 9.2 MG/DL 9.4 MG/DL White Blood Count 8.6 TH/MM3 8.0 TH/MM3 Red Blood Count 4.08 MIL/MM3 3.85 MIL/MM3 Hemoglobin 12.4 GM/DL 11.7 GM/DL Hematocrit 36.4 % 34.1 % Mean Corpuscular Volume 89.4 FL 88.5 FL Mean Corpuscular Hemoglobin 30.4 PG 30.3 PG Mean Corpuscular Hemoglobin 34.0 % 34.2 % Concent Red Cell Distribution Width 13.7 % 13.9 % Platelet Count 289 TH/MM3 267 TH/MM3 Mean Platelet Volume 8.2 FL 8.2 FL Neutrophils (%) (Auto) 53.0 % Lymphocytes (%) (Auto) 27.4 % Monocytes (%) (Auto) 11.3 % Eosinophils (%) (Auto) 7.5 % Basophils (%) (Auto) 0.8 % Neutrophils # (Auto) 4.5 TH/MM3 Lymphocytes # (Auto) 2.4 TH/MM3 Monocytes # (Auto) 1.0 TH/MM3 Eosinophils # (Auto) 0.6 TH/MM3 Basophils # (Auto) 0.1 TH/MM3 CBC Comment DIFF FINAL Differential Comment Erythrocyte Sedimentation Rate 41 mm/hr C-Reactive Protein 1.80 MG/DL Rheumatoid Factor Screen NEGATIVE Rheumatoid Factor Titer IU/ML Vital Signs Date Time Temp Pulse Resp B/P Pulse Ox O2 Delivery O2 Flow Rate FiO2 04/25/17 08:00 97.2 81 18 108/59 94 04/25/17 04:00 97.0 83 18 122/76 96 04/25/17 00:00 97.5 79 17 125/73 97 04/24/17 20:55 98.1 82 17 165/86 96 04/24/17 16:57 96.7 78 16 117/76 96 04/24/17 12:00 95.9 76 16 123/83 96 04/24/17 08:00 96.5 84 16 126/74 92 04/24/17 07:40 Room Air 04/23/17 23:45 96.5 78 17 116/68 95 04/23/17 20:37 96.3 77 16 124/69 97 04/23/17 16:00 95.8 72 18 133/75 96 04/23/17 12:00 96.3 75 18 123/71 97 04/23/17 08:00 96.3 70 18 132/90 96 04/23/17 04:01 96.7 79 18 167/87 94 04/22/17 23:03 96.7 79 18 157/87 97 04/22/17 20:39 94 04/22/17 19:39 98.4 67 18 128/74 95 04/22/17 15:57 97.8 85 18 162/80 97 04/22/17 12:37 97.9 85 20 166/80 95 (Chase Moncada) Medical Decision Making Impression and Plan Impression: 1. Right L3-4 herniated nucleus pulposis 2. No right L3 or L4 distribution pain, motor deficit, or sensory changes. Only with repetitive questioning does he indicate that he has had some pain in the right posterior thigh for the past few days. He states that this pain is improving. He appears to have myofascial type pain radiating from the cervical thoracic and lumbosacral junctions and a circuitous fashion around the right lower lumbar region and flank. I do not see definite etiology otherwise for this pain. CT abdomen/pelvis demonstrates a right lower lobe nodule & scattered diverticulosis but no renal stones or any acute inflammatory process. Bone scan demonstrated degenerative process to the mid cervical facets and high thoracic spine. Sed rate elevated (41) CRP elevated (1.80) Rheumatoid screen results pending The patient remains stable w/point tenderness & pain to the right lateral abdominal wall. Plan: Plan of care discussed with patient. Primary management per Hospitalist. (Chase Moncada) Attending Statement I have personally seen and examined the patient on the date of this note. Pertinent documentation and study results have been reviewed by the undersigned. I have personally developed the treatment plan and performed medical decision making. Agree with findings, exam, and treatment plan as noted above. Patient ambulating with walker. Remains very painful with primarily pain at the right lateral costal margin, to a lesser extent intermittent pain in the right upper gluteal region. Very excruciating focal tenderness at the right inferior lateral costal margin. No significant gluteal or lateral hip tenderness. I discussed the patient with pain management today as well as long discussion with his primary care attending physician in the presence of the patient and his . He will be transferred to [facility] today so that he can be seen by interventional pain management with possible right intercostal nerve block. He may also benefit from a right L3-4 transforaminal epidural steroid injection , although he still does not really have any definite significant pain symptoms or deficits related to what appears to be a chronic right L3 4 posterior osteophytic disc complex. Plan continue neurosurgery follow-up depending on his results with interventional pain management. (Maury Martinez MD) Chase Moncada Apr 25, 2017 12:27 Maury Martinez MD Apr 25, 2017 20:16
--- NOTE | 2017-04-25 14:02 | HHI.DS ---
Discharge Summary Admission Date Apr 22, 2017 at 09:49 Discharge Date: Apr 25, 2017 Admitting Diagnosis low back pain (1) Protrusion of lumbar intervertebral disc Diagnosis: Principal Plan: Neurosurgery has evaluated patient and does not feel that pain correlates directly with findings on MRI. Pt complains of right flank pain, most likely due to T12 nerve pain. Pt discussed with Dr. Espinoza and will be transferred to [place] to have nerve block done by Dr. Wiseman. - Possible surgical intervention vs. conservative management with PT/pain control Pain control as below: Percocet 7.5/325 every 8 hours by mouth scheduled Morphine 3mg every 3 hours as needed for breakthrough pain - Will add tizanidine 4mg po every 8 hours as needed - Received Decadron 10 mg IV 1 in the emergency department -CT of abdomen and pelvis, normal, ruling out possible renal stone -CRP elevated at 1.80, possibly back pain due to inflammatory process -Rheumatoid Factor negative -Bone scan - degenerative process to the mid cervical facets and high thoracic spine. -Physical therapy to evaluate patient and begin rehabilitation - will need to continue this as an outpatient -Bowel regimen: Marleni-Colace twice a day Lactulose 30 mL daily as needed Milk of magnesia 30 mL as needed (2) CKD (chronic kidney disease) Diagnosis: Secondary Plan: Patient with a history of CKD stage 3. Creatinine seems to be at baseline. Continue monitor (3) GERD (gastroesophageal reflux disease) Diagnosis: Secondary Plan: Started on ranitidine 150mg bid - Tums as needed (4) Hypertension Diagnosis: Secondary Plan: Hypertension controlled on medication. Continue home medication lisinopril 20 mg by mouth daily (5) Diabetes Diagnosis: Secondary Plan: Patient on multiple different oral medications to control his diabetes. Hold home medications Low dose sliding scale insulin (6) DVT prophylaxis Diagnosis: Principal Plan: DVT prophylaxis as below: Heparin 5000 units subcutaneous every 8 hours (7) FEN Diagnosis: Principal Plan: Fluids: By mouth Electrolytes: Monitor and replete Nutrition: Diabetic diet Consultants Neurology, Pain management CBC/BMP: 04/25/17 0615 04/25/17 0615 Significant Findings Laboratory Tests Test 04/23/17 04/23/17 04/25/17 05:27 14:06 06:15 Blood Urea Nitrogen 25 MG/DL (7-18) 25 MG/DL (7-18) Creatinine 1.45 MG/DL 1.65 MG/DL (0.60-1.30) (0.60-1.30) Estimat Glomerular Filtration 47 ML/MIN (>89) 41 ML/MIN (>89) Rate Random Glucose 159 MG/DL 208 MG/DL (74-106) (74-106) Red Blood Count 4.08 MIL/MM3 3.85 MIL/MM3 (4.50-5.90) (4.50-5.90) Hemoglobin 12.4 GM/DL 11.7 GM/DL (13.0-17.0) (13.0-17.0) Hematocrit 36.4 % 34.1 % (39.0-51.0) (39.0-51.0) Monocytes (%) (Auto) 11.3 % (0.0-8.0) Eosinophils (%) (Auto) 7.5 % (0.0-4.0) Monocytes # (Auto) 1.0 TH/MM3 (0-0.9) Eosinophils # (Auto) 0.6 TH/MM3 (0-0.4) Erythrocyte Sedimentation Rate 41 mm/hr (0-20) C-Reactive Protein 1.80 MG/DL (0.00-0.30) Imaging Last Impressions SPECT Scan-Bone Nuclear Medicine 04/24/17 0000 Signed Impressions: Service Date/Time: Monday, April 24, 2017 09:27 - CONCLUSION: Mild uptake as described above more prominent in the mid cervical facets and high thoracic spine consistent with degenerative process. Leland Holguin MD FACR Abdomen/Pelvis CT 04/23/17 0000 Signed Impressions: Service Date/Time: Sunday, April 23, 2017 17:39 - CONCLUSION: 1. 7-8 mm nodule right lower lobe. Followup CT chest in 3 months recommended for stability. 2. No renal calculi or hydronephrosis. 3. No acute inflammatory process. 4. Scattered diverticulosis without diverticulitis. Renny Stanton MD Thoracic Spine MRI 04/21/17 0000 Signed Impressions: Service Date/Time: Friday, April 21, 2017 21:23 - CONCLUSION: 1. Mild degenerative changes without canal or foraminal stenosis. Tiny disc protrusions are suspected at T2-3 through T4-5 on the right. Cas Brown MD PE at Discharge GENERAL: This is a well-nourished, well-developed patient. lying in bed CARDIOVASCULAR: Regular rate and rhythm without murmurs, gallops, or rubs. RESPIRATORY: Clear to auscultation. Breath sounds equal bilaterally. No wheezes , rales, or rhonchi. GASTROINTESTINAL: Abdomen soft, non-tender, nondistended. No guarding. MUSCULOSKELETAL: Extremities without clubbing, cyanosis, or edema. No swelling or rash over back. (+) Tender to palpation in right paraspinal musculature. Full strength in hips and upper extremities. Hospital Course Patient admitted on 04/21/17 for 3 months of progressively worsening, intractable right-sided lower back pain that limits his ability to ambulate. Neurology consulted. Extruded disc on the right impinging on the traversing right L4 nerve root on MRI. CT of abdomen and pelvis appeared normal, negative for renal calculi. CRP elevated and rheumatoid factor negative. Bone scan showed degenerative process to the mid cervical facets and high thoracic spine. Surgery for L3-4 disc herniation . Both and patient requested to be transferred over to [facility] for T11-T12 intercostal nerve block by Dr. Wiseman. Patient was discussed with Dr. Espinoza and determined to be stable for transfer over to [place] on 04/25/17. Pt Condition on Discharge: Stable Discharge Disposition: Trnsfr to Other Facility Discharge Instructions DIET: Follow Instructions for: Diabetic Diet Activities you can perform: Weight Bearing as [place] Follow up Referrals: Pain Management - 2-3 Days with Lesley Wiseman MD PCP Follow-up - 1 Week New Medications: Gabapentin (Neurontin) 300 Mg Cap 300 MG PO BID #30 CAP Heparin Sodium (Porcine) (Heparin Sodium) 10,000 Unit/Ml Inj 5000 UNITS SQ Q8HR #60 INJECTION Insulin Aspart Inj (Novolog Inj) 100 Unit/Ml Inj 1 UNIT SQ ACHS SLIDING SCALE #30 INJECTION Lisinopril (Lisinopril) 20 Mg Tab 20 MG PO DAILY #30 TAB Oxycodone-Acetaminophen (Oxycodone-Acetaminophen) 7.5-325 mg Tab 1 TAB PO Q4HR PRN PAIN SCALE 1 TO 10 #30 TAB Sennosides-Docusate Sodium (Senna Plus 8.6-50 mg) 1 Tab Tab 1 TAB PO BID #30 TAB Tizanidine (Zanaflex) 4 Mg Tab 4 MG PO Q8H PRN PAIN 1 TO 10 AND/OR AGITATION #30 TAB ([Morphine Inj]) 8 MG/ML INJ 5 MG IV PUSH Q3H PRN BREAKTHROUGH PAIN #30 VIAL Discontinued Medications: Coenzyme Q10 (Ubidecarenone) (Coenzyme Q10 (Ubidecarenone)) 100 Mg Tab 100 MG PO DAILY #1 BOTTLE Glimepiride (Glimepiride) 4 Mg Tab 4 MG PO DAILY Take with breakfast or first main meal Blood Sugar Management #90 Ref 3 TAB Hydrocodone-Acetaminophen (Hooppole) 7.5-325 mg Tab 1 TAB PO Q6H PRN PAIN #30 Ref 0 TAB Lisinopril (Lisinopril) 20 Mg Tab 20 MG PO DAILY #90 Ref 3 TAB Metformin (Metformin) 1,000 Mg Tab 1000 MG PO BIDPC With meals Blood Sugar Management #180 Ref 3 TAB Pioglitazone (Actos) 30 Mg Tab 30 MG PO DAILY Blood Sugar Management #90 TAB Erica León MD R1 Apr 25, 2017 14:02
[2017-04-25] MEDS ORDERED: SENN1TAB PO (14:59)
[2017-04-25] MEDS ORDERED: NEUR300C PO (14:59)
--- NOTE | 2017-04-25 15:01 | HHI.DCPOC ---
Discharge Care Plan Diagnosis: (1) Low back pain Goals to Promote Your Health * To prevent worsening of your condition and complications, follow up with your primary care physician as directed. Directions to Meet Your Goals Take your medications as prescribed Follow your dietary instruction Follow activity as directed Keep your appointments as scheduled Take your immunizations and boosters as scheduled If your symptoms worsen call your PCP, if no PCP go to Urgent Care Center or Emergency Room Smoking is Dangerous to Your Health. Avoid second hand smoke Call the 24-hour hour crisis hotline for domestic abuse at Toni Rowe MD R1 Apr 25, 2017 15:01
[2017-04-25 16:00] VITALS: BP 134/70; PULSE 77; RESP 18; TEMP 97; O2SAT 93
[2017-04-25 20:00] VITALS: BP 159/92; PULSE 86; RESP 18; TEMP 97.2; O2SAT 94
[2017-04-26] VITALS: BP 111/67; PULSE 78; RESP 18; TEMP 97; O2SAT 94
[2017-04-26] MEDS: oxyCODONE/ACETAMINOPHEN 7.5 MG/325 MG TAB PO PRN (06:27)
[2017-04-26] MEDS: HEPARIN SODIUM - SQ 10,000 UNITS/ML VIAL SQ SCH ×3 (06:27→21:57)
[2017-04-26] MEDS: INSULIN ASPART SUPPLEMENTAL SCALE SQ SCH ×4 (07:00→22:01)
[2017-04-26] MEDS ORDERED: SODIUM CHLORID 0.9% 500 ML INJ 500 ML IV ONE (07:30)
[2017-04-26 08:00] VITALS: BP 162/81; PULSE 80; RESP 16; TEMP 97.8; O2SAT 94
[2017-04-26] MEDS: LISINOPRIL 20 MG TAB PO SCH (09:00)
[2017-04-26] MEDS: FAMOTIDINE 20 MG TAB PO SCH ×2 (09:00→21:56)
[2017-04-26] MEDS: GABAPENTIN 300 MG CAP PO SCH ×2 (09:00→21:56)
[2017-04-26] MEDS: DOCUSATE SODIUM 50 MG/SENNA 8.6 MG TAB PO SCH ×2 (09:00→21:56)
[2017-04-26] MEDS: SODIUM CHLORIDE 0.9% FLUSH 10 ML FLUSH IV FLUSH SCH ×2 (09:57→21:56)
[2017-04-26] MEDS ORDERED: CYANOCOBALAMIN 1000 MCG/ML VIAL IM ONE (10:56)
[2017-04-26] MEDS ORDERED: PROPOFOL 200 MG/20 ML AMP IV ONE (10:56)
[2017-04-26] MEDS ORDERED: TRIAMCINOLONE ACETONIDE 40 MG/ML VIAL NERV BLOCK ONE (10:56)
[2017-04-26] MEDS ORDERED: MEPERIDINE HCL 25 MG/ML VIAL IV ONE (10:56)
[2017-04-26] MEDS ORDERED: BUPIVACAINE HCL PF 0.75% 30 ML VIAL ONE (10:56)
[2017-04-26 12:00] VITALS: BP 112/84; PULSE 71; RESP 16; TEMP 97.5; O2SAT 95
--- NOTE | 2017-04-26 13:27 | HHI.FF ---
Face to Face Verification Diagnosis: (1) Rib pain on right side (2) General weakness Physical Therapy Order: Evaluate and Treat Home Health Nursing Order: Diabetic education Nursing assessment with vital signs I have seen patient Ethan Malave on 04/26/17. My clinical findings support the need for the requested home health care services because: Deconditioned w/ increased weakness I certify that my clinical findings support that this patient is homebound because: Unsafe to leave home unassisted Jean Paul Espinoza MD Apr 26, 2017 13:27
[2017-04-26] MEDS ORDERED: DOCUSATE SODIUM 50 MG/SENNA 8.6 MG TAB PO ONE (15:00)
[2017-04-26] MEDS ORDERED: MAGNESIUM HYDROXIDE SUSP 30 ML CUP PO ONE (15:00)
[2017-04-26 16:00] VITALS: BP 153/87; PULSE 70; RESP 16; TEMP 97.2; O2SAT 97
--- NOTE | 2017-04-26 17:13 | HHI.PR ---
Subjective Remarks Patient seen this afternoon around 2 PM after undergoing nerve block this morning. Patient reports pain has completely resolved. He is walking around with use of walker. Patient does report fullness in right upper quadrant, however says this could be secondary to constipation since he has not had a bowel movement in several days. Objective Vital Signs Date Time Temp Pulse Resp B/P Pulse Ox O2 Delivery O2 Flow Rate FiO2 04/26/17 16:00 97.2 70 16 153/87 97 04/26/17 12:00 97.5 71 16 112/84 95 04/26/17 08:00 97.8 80 16 162/81 94 04/26/17 00:00 97.0 78 18 111/67 94 04/25/17 21:33 18 04/25/17 20:00 97.2 86 18 159/92 94 I/O 04/25/17 04/25/17 04/25/17 04/26/17 04/26/17 04/26/17 06:59 14:59 22:59 06:59 14:59 22:59 Intake Total 240 ml 840 ml 420 ml 450 ml Output Total 250 ml 450 ml Balance 240 ml 590 ml -30 ml 450 ml Intake Oral 240 ml 840 ml 420 ml 450 ml IV Total 0 ml Output Urine Total 250 ml 450 ml # Voids 1 5 1 # Bowel Movements 0 0 0 Result Diagram: 04/25/17 0615 04/25/17 0615 Imaging Last Impressions SPECT Scan-Bone Nuclear Medicine 04/24/17 0000 Signed Impressions: Service Date/Time: Monday, April 24, 2017 09:27 - CONCLUSION: Mild uptake as described above more prominent in the mid cervical facets and high thoracic spine consistent with degenerative process. Leland Holguin MD FACR Abdomen/Pelvis CT 04/23/17 0000 Signed Impressions: Service Date/Time: Sunday, April 23, 2017 17:39 - CONCLUSION: 1. 7-8 mm nodule right lower lobe. Followup CT chest in 3 months recommended for stability. 2. No renal calculi or hydronephrosis. 3. No acute inflammatory process. 4. Scattered diverticulosis without diverticulitis. Renny Stanton MD Thoracic Spine MRI 04/21/17 0000 Signed Impressions: Service Date/Time: Friday, April 21, 2017 21:23 - CONCLUSION: 1. Mild degenerative changes without canal or foraminal stenosis. Tiny disc protrusions are suspected at T2-3 through T4-5 on the right. Cas Brown MD Objective Remarks GENERAL: patient walking around. Appears comfortable. Alert and oriented 3. SKIN: Warm and dry. HEAD: Normocephalic. EYES: No scleral icterus. No injection or drainage. NECK: Supple, trachea midline. No JVD CARDIOVASCULAR: Regular rate and rhythm without murmurs, gallops, or rubs. RESPIRATORY: Breath sounds equal bilaterally. No accessory muscle use. GASTROINTESTINAL: Abdomen soft, non-tender, nondistended. nontender. Nondistended. No rebound or guarding. MUSCULOSKELETAL: No cyanosis, or edema. BACK: Nontender without obvious deformity. No CVA tenderness. A/P Assessment and Plan === 04/26/17========= constipation. Patient reports no bowel movements in several days, although bowel movements are reported. CT abdomen personally interpreted, does show some constipation. Laxatives ordered. //Thoracic abdominal pain. Status post nerve block. Pain resolved. Patient has sensation of fullness overlying the right upper quadrant, however this is most likely secondary to patient is a 76-year-old male with a history of diabetes who presented to the ED today for 3 months of progressively worsening, intractable right-sided lower back pain that limits his ability to ambulate. Extruded disc on the right impinging on the traversing right L4 nerve root on MRI. Neurosurgery consulted. CT of abdomen and pelvis 04/23 appeared normal, negative for renal calculi. CRP elevated at 1.80, possibly back pain due to inflammatory process. Rheumatoid factor was negative. Bone scan showed degenerative process to the mid cervical facets and high thoracic spine. nerve block performed by Dr. Wiseman. //Protrusion of lumbar intervertebral disc - Neurosurgery has evaluated patient and does not feel that pain correlates directly with findings on MRI. Pt complains of right flank pain, most likely due to T12 nerve pain. Pt discussed with Dr. Espinoza and will be transferred to [facility] to have nerve block done by Dr. Wiseman. - Possible surgical intervention vs. conservative management with PT/pain control Pain control as below: Percocet 7.5/325 every 4 hours by mouth scheduled Morphine 3mg every 3 hours as needed for breakthrough pain Tizanidine 4mg po every 8 hours as needed - Received Decadron 10 mg IV 1 in the emergency department -CT of abdomen and pelvis, normal, ruling out possible renal stone -CRP elevated at 1.80, possibly back pain due to inflammatory process -Rheumatoid Factor negative -Bone scan - degenerative process to the mid cervical facets and high thoracic spine. -Physical therapy to evaluate patient and begin rehabilitation - will need to continue this as an outpatient -Bowel regimen: Marleni-Colace twice a day Lactulose 30 mL daily as needed Milk of magnesia 30 mL given with marleni-colace //CKD (chronic kidney disease) - Patient with a history of CKD stage 3. Creatinine seems to be at baseline. //GERD (gastroesophageal reflux disease)chronic - Started on ranitidine 150mg bid - Tums as needed //Hypertension. chronic - Hypertension controlled on medication. Continue home medication lisinopril 20 mg by mouth daily //Diabetes. chronic. -Patient on multiple different oral medications to control his diabetes. Hold home medications Low dose sliding scale insulin //DVT prophylaxis Heparin 5000 units subcutaneous every 8 hours Discharge Planning patient concerned about constipation. Hold discharge until patient has bowel movement. Jean Paul Espinoza MD Apr 26, 2017 17:13
[2017-04-26 20:00] VITALS: BP 140/83; PULSE 108; RESP 20; TEMP 96.1; O2SAT 97
[2017-04-27] VITALS: BP 155/74; PULSE 84; RESP 20; TEMP 96.8; O2SAT 97
[2017-04-27] MEDS: HEPARIN SODIUM - SQ 10,000 UNITS/ML VIAL SQ SCH (06:04)
[2017-04-27] MEDS: INSULIN ASPART SUPPLEMENTAL SCALE SQ SCH ×2 (06:14→11:15)
[2017-04-27 08:00] VITALS: BP 140/97; PULSE 71; RESP 21; TEMP 97.5; O2SAT 96
[2017-04-27] MEDS: FAMOTIDINE 20 MG TAB PO SCH (08:31)
[2017-04-27] MEDS: LISINOPRIL 20 MG TAB PO SCH (08:31)
[2017-04-27] MEDS: SODIUM CHLORIDE 0.9% FLUSH 10 ML FLUSH IV FLUSH SCH (08:32)
[2017-04-27] MEDS: DOCUSATE SODIUM 50 MG/SENNA 8.6 MG TAB PO SCH (08:32)
[2017-04-27] MEDS: GABAPENTIN 300 MG CAP PO SCH (08:33)
--- NOTE | 2017-04-27 10:34 | HHI.DS ---
Discharge Summary Admission Date Apr 22, 2017 at 09:49 Discharge Date: Apr 27, 2017 Admitting Diagnosis low back pain (1) Low back pain ICD Code: M54.5 (2) L4-L5 disc bulge ICD Code: M51.26 Procedures Nerve block Brief History - From Admission This patient is 76-year-old gentleman with diabetes who had 3 months of progressive worsening right sided back pain which was worse with ambulation. Pain was not relieved with Danny and always described as severe 9 out of 10. There is no urinary or bowel incontinence or saddle anesthesia/paresthesias. He was admitted to the emergency room for severe pain with inability to ambulate. CBC/BMP: 04/25/17 0615 04/25/17 0615 Significant Findings Laboratory Tests Test 04/25/17 06:15 Red Blood Count 3.85 MIL/MM3 (4.50-5.90) Hemoglobin 11.7 GM/DL (13.0-17.0) Hematocrit 34.1 % (39.0-51.0) Blood Urea Nitrogen 25 MG/DL (7-18) Creatinine 1.65 MG/DL (0.60-1.30) Estimat Glomerular Filtration 41 ML/MIN (>89) Rate Random Glucose 208 MG/DL (74-106) Imaging Last Impressions SPECT Scan-Bone Nuclear Medicine 04/24/17 0000 Signed Impressions: Service Date/Time: Monday, April 24, 2017 09:27 - CONCLUSION: Mild uptake as described above more prominent in the mid cervical facets and high thoracic spine consistent with degenerative process. Leland Holguin MD FACR Abdomen/Pelvis CT 04/23/17 0000 Signed Impressions: Service Date/Time: Sunday, April 23, 2017 17:39 - CONCLUSION: 1. 7-8 mm nodule right lower lobe. Followup CT chest in 3 months recommended for stability. 2. No renal calculi or hydronephrosis. 3. No acute inflammatory process. 4. Scattered diverticulosis without diverticulitis. Renny Stanton MD Thoracic Spine MRI 04/21/17 0000 Signed Impressions: Service Date/Time: Friday, April 21, 2017 21:23 - CONCLUSION: 1. Mild degenerative changes without canal or foraminal stenosis. Tiny disc protrusions are suspected at T2-3 through T4-5 on the right. Cas Brown MD PE at Discharge GENERAL: This is a well-nourished, well-developed patient, in no apparent distress. CARDIOVASCULAR: Regular rate and rhythm without murmurs, gallops, or rubs. RESPIRATORY: Clear to auscultation. Breath sounds equal bilaterally. No wheezes , rales, or rhonchi. GASTROINTESTINAL: Abdomen soft, non-tender, nondistended. Normal active bowel sounds MUSCULOSKELETAL: Extremities without clubbing, cyanosis, or edema. NEURO: Alert & Oriented x4 to person, place, time, situation. Moves all ext x4 Transfer Summary Patient transferred from [facility] to [facility] for pain management Pt update on day of discharge Patient seen today in follow-up. No new complaints. Pain is controlled. Discharge plans discussed with patient and spouse and [facility] nursing team Hospital Course This patient was seen and treated with medical management initially and then had a lumbar block. Pain improved. The pain is from protrusion of lumbar vertebral disc. Patient does have chronic kidney disease stage III which was stable. His blood pressure was controlled on lisinopril. His diabetes was controlled on his home medications as well as sliding scale insulin. Patient had adequate bowel movements and was discharged home Pt Condition on Discharge: Good Discharge Disposition: Discharge Home Discharge Time: > 30 minutes Discharge Instructions DIET: Follow Instructions for: Diabetic Diet Activities you can perform: Weight Bearing as Bushra Follow up Referrals: Pain Management - 05/23/17 with Lesley Wiseman MD PCP Follow-up - 1 Week New Medications: Gabapentin (Neurontin) 300 Mg Cap 300 MG PO BID #30 CAP Sennosides-Docusate Sodium (Senna Plus 8.6-50 mg) 1 Tab Tab 1 TAB PO BID #30 TAB Continued Medications: Coenzyme Q10 (Ubidecarenone) (Coenzyme Q10 (Ubidecarenone)) 100 Mg Tab 100 MG PO DAILY #1 BOTTLE Glimepiride (Glimepiride) 4 Mg Tab 4 MG PO DAILY Take with breakfast or first main meal Blood Sugar Management #90 Ref 3 TAB Hydrocodone-Acetaminophen (Lee) 7.5-325 mg Tab 1 TAB PO Q6H PRN PAIN #30 Ref 0 TAB Lisinopril (Lisinopril) 20 Mg Tab 20 MG PO DAILY #90 Ref 3 TAB Metformin (Metformin) 1,000 Mg Tab 1000 MG PO BIDPC With meals Blood Sugar Management #180 Ref 3 TAB Pioglitazone (Actos) 30 Mg Tab 30 MG PO DAILY Blood Sugar Management #90 TAB Darcie Jesus MD Apr 27, 2017 10:34
--- NOTE | 2017-04-28 13:09 | M6 ---
cc: CARLA WISEMAN M.D. DATE: 04/26/2017 DATE OF : 1940 PROCEDURE Fluoroscopically guided right T11 and T12 intercostal nerve block History and physical was completed and signed. Consent was signed. Procedure site was marked. Medications were listed and reconciled. Pain score was recorded. Allergies were noted. Time out was taken. Fluoroscopy time was recorded where applicable. Sedation was administered or directed by Dr. Wiseman. The patient was given oxygen. The patient was monitored by a registered nurse. Total procedure time was greater than 15 minutes. IV was started, blood pressure cuff, pulse oximeter and EKG were applied. The patient was placed in the prone position on a Oscar table sedated with small amounts of propofol titrated to effect. Vital signs were monitored and remained stable throughout the procedure the thoracic area was prepped with alcohol and 10% Betadine solution and draped with sterile drapes. Fluoroscopy was use to visualize the right T11-T12 rib. Then approximately 6 or 7 cm from the midline. A 22-gauge Chiba needle was advanced down to make bony contact along the caudal edge of each rib and then gently redirected off the caudal edge of the rib. There was negative aspiration for blood or any other type of fluid at each location the patient was given 4 mL of Marcaine 0.75% which contained 20 mg of Kenalog and 1000 mcg of vitamin B12. Following the procedure the patient was taken to the recovery room with stable vital signs neurologically intact he will be evaluated immediately and with followup to determine if he has a subjective decrease in his pain and a corresponding objective increase his functional capabilities. W. MD ESTIVEN Quiroga/oral /11:09 AM /12:59 PM
== END 2017-04-27 11:31 | disposition home or self-care (01) | DRG 552 ==
LOC: NEPE 09:26 → NEDA 10:56 → NEPHCDU 13:00 → OBSVTOIN 04-22 09:49 → N06B 04-22 22:48 → PH3A 04-25 20:33
PROVIDERS: ADMIT Hospitalist; ATTEND Hospitalist
PROC: 3E0T3CZ (ICD-10-PCS; principal; 2017-04-26)
DX: M51.16 Intervertebral disc disorders with radiculopathy, lumbar region (principal); E11.22 Type 2 diabetes mellitus with diabetic chronic kidney disease; N18.3 Chronic kidney disease, stage 3 (moderate); E78.5 Hyperlipidemia, unspecified; G47.30 Sleep apnea, unspecified; I12.9 Hypertensive chronic kidney disease with stage 1 through stage 4 chronic kidney disease, or unspecified chronic kidney disease; K21.9 Gastro-esophageal reflux disease without esophagitis; K57.90 Diverticulosis of intestine, part unspecified, without perforation or abscess without bleeding; K59.00 Constipation, unspecified; Z79.4 Long term (current) use of insulin; Z87.891 Personal history of nicotine dependence; Z96.653 Presence of artificial knee joint, bilateral; F41.9 Anxiety disorder, unspecified; M19.90 Unspecified osteoarthritis, unspecified site; M54.2 Cervicalgia; G89.29 Other chronic pain; R22.1 Localized swelling, mass and lump, neck; R26.2 Difficulty in walking, not elsewhere classified; R91.1 Solitary pulmonary nodule; Z79.84 Long term (current) use of oral hypoglycemic drugs
CPT/HCPCS: 64420; 72146; 74176; 77002; 78306; 78320; 78399; 80048; 80076; 82948; 85025; 85027; 85652; 86140; 86430; 99152; A9503; J0131; J1100; J1644; J1815; J2060; J2175; J2270; J2405; J3301; J3420